=== PATIENT | female | born 1980 | race Caucasian/White ===

== ENCOUNTER 2016-09-17 12:09 | Emergency (ER) | payer MEDICARE, MEDICAID ==
[~2016-09-17] VITALS: Ht 157.5 cm; Wt 68.0 kg
[2016-09-17 12:09] VITALS: BP 109/84
[~2016-09-17 12:09] MED LIST: ASPI32ECTA PO; ATIV1TAB2 OR; ATIV1TAB7 PO; BUPR150T3 PO; CALC500C PO; CIPR-303 PO; DEPA500T2 OR; DEPA500T2 PO; EFFE75CA75 OR; HYDR-4274 PO; HYDRO50TAB PO; IBUP80TA PO; KLON1TAB PO; LIDO1OIN2 TOP; LITH300C PO; METH75TA PO; METR500T10 PO; MOTR200T44 PO; NICO21PAT TD; OXCA150T PO; OXCA300T PO; TRAZ150T14 PO; TYLE325C PO; TYLE325T5 PO; WELLTAB38 PO; [UNRECOGNIZED DRUG - OTHER] TD; no
[2016-09-17] MEDS ORDERED: OXCA300T (12:23)
[2016-09-17] MEDS ORDERED: BUPR100T3 (12:23)
[2016-09-17] MEDS ORDERED: BUPR100T3 PO (13:01)
[2016-09-18] MEDS ORDERED: ZOFR4TAB3 PO (13:15)
== END 2016-09-17 13:16 | disposition home or self-care (01) ==
LOC: M ED 13:11
DX: Z76.0 Encounter for issue of repeat prescription (principal); F33.0 Major depressive disorder, recurrent, mild; Z79.899 Other long term (current) drug therapy; F17.210 Nicotine dependence, cigarettes, uncomplicated

== ENCOUNTER 2016-09-18 10:26 | Emergency (ER) | payer MEDICARE, MEDICAID ==
[~2016-09-18] VITALS: Ht 157.5 cm; Wt 68.0 kg
[~2016-09-18 10:26] MED LIST changes: +BUPR100T3; +BUPR100T3 PO; +OXCA300T
[2016-09-18] MEDS ORDERED: ONDANSETRON 4MG/2ML VIAL (J2405) IV ONE (11:15)
[2016-09-18 11:27] LABS: CONTROL LINE HCG INT CTR LINE PRESENT
[2016-09-18 11:28] LABS: BASO % 0.2 % (0.0-1.0); EOS # 0.1 K/mm3 (0.0-0.50); EOS % 0.5 % (0.0-3.0); LARGE UNSTAINED CELL # 0.1 K/mm3 (0.0-0.4); LARGE UNSTAINED CELL % 0.5 % (0.0-4.0); LYMPH # 1.3 K/mm3 (1.5-4.5); LYMPH % 9.3 % (24.0-44.0); MEAN CORPUSCULAR HEMOGLOBIN 29.6 pg (27.0-33.0); MEAN CORPUSCULAR HGB CONC 33.3 g/dl (32.0-36.5); MONO # 0.3 K/mm3 (0.0-0.8); MONO % 2.3 % (0.0-5.0); NEUTROPHILS # 11.4 K/mm3 (1.8-7.7); NEUTROPHILS % 87.2 % (36.0-66.0); PLATELET COUNT, AUTOMATED 612 k/mm3 (150-450); RED CELL DISTRIBUTION WIDTH 13.8 % (11.5-14.5)
[2016-09-18 11:34] LABS: ALBUMIN 3.7 GM/DL (3.2-5.2); ALBUMIN/GLOBULIN RATIO 0.86 (1.00-1.93); ALKALINE PHOSPHATASE 79 U/L (45-117); ALT/SGPT 14 U/L (12-78); ANION GAP 7 MEQ/L (8-16); AST/SGOT 27 U/L (15-37); BILIRUBIN,DIRECT < 0.1 MG/DL (0.0-0.2); BILIRUBIN,TOTAL 0.4 MG/DL (0.2-1.0); BLOOD UREA NITROGEN 11 MG/DL (7-18); CALCIUM LEVEL 9.2 MG/DL (8.5-10.1); CARBON DIOXIDE LEVEL 27 MEQ/L (21-32); CHLORIDE LEVEL 103 MEQ/L (98-107); CREATININE FOR GFR 0.85 MG/DL (0.55-1.02); GLOMERULAR FILTRATION RATE > 60.0 (>60); GLUCOSE, FASTING 121 MG/DL (70-105); POTASSIUM SERUM 4.2 MEQ/L (3.5-5.1); SODIUM LEVEL 137 MEQ/L (136-145)
--- NOTE | 2016-09-18 13:05 | REP ---
Right upper quadrant sonography: History: However quadrant pain. Comparison study: No comparison study Findings: Scanning through the right upper quadrant of the abdomen demonstrates a normal sized, thin-walled gallbladder without evidence of stone or polyp. Common bile duct is normal measuring 0.5 cm in greatest diameter. No focal liver lesion is seen. Liver size is normal. No pancreatic abnormality is observed. Renal sinus echogenicity pattern is somewhat increased in the right kidney. This may reflect hydration state. No other right renal abnormality is seen. There is no evidence of ascites. The right kidney measures 9.7 x 5.2 x 4.3 cm. cm. Impression: Negative right upper quadrant sonography. Signed by Jayce Urbina MD 09/18/2016 12:56 P
[2016-09-18] MEDS ORDERED: ZOFR4TAB3 PO (13:15)
[2016-09-18 14:05] VITALS: BP 118/67
--- NOTE | 2016-09-19 19:41 | ECGEPIP ---
Stationary ECG Study [facility] - ED Test Date: 2016-09-18 Pat Name: SHERMAN BARRIOS Department: Room: - Gender: F [employer] Operator: milind : 1980 Requested By: Harrison Cook Order Number: [id number] Reading MD: Alissa Grant Measurements Intervals Fonda Rate: 63 P: 20 AL: QRS: -54 QRSD: 99 T: 28 QT: 418 QTc: 429 Interpretive Statements SINUS RHYTHM WITH SINUS ARRHYTHMIA PATTERN CONSISTENT WITH PULMONARY DISEASE LEFT ANTERIOR FASCICULAR BLOCK NONSPECIFIC ST ELEVATION REQUIRES CLIICAL CORRELATION FOR ACUTE ISCHEMIA COMPARED 10/29/15 Electronically Signed On 09-19-2016 19:41:06 EDT by Alissa Grant
== END 2016-09-18 14:09 | disposition home or self-care (01) ==
LOC: M ED 12:02
DX: R11.2 Nausea with vomiting, unspecified (principal)
CPT/HCPCS: 76705; 80048; 80076; 84703; 85025; 93005; 96374; 99284; J2405

== ENCOUNTER 2016-10-16 20:38 | Emergency (ER) | payer MEDICARE, MEDICAID ==
[~2016-10-16] VITALS: Ht 157.5 cm; Wt 68.9 kg
[~2016-10-16 20:38] MED LIST changes: +ZOFR4TAB3 PO
[2016-10-16 20:39] VITALS: BP 145/90
[2016-10-16] MEDS ORDERED: DERMABOND TOPICAL SKIN ADHESIVE TOP ONE (21:00)
[2016-10-16] MEDS ORDERED: AUGM875T27 PO (21:02)
== END 2016-10-16 21:11 | disposition home or self-care (01) ==
LOC: M ED 21:08
DX: S61.001A Unspecified open wound of right thumb without damage to nail, initial encounter (principal); W25.XXXA Contact with sharp glass, initial encounter; Y92.099 Unspecified place in other non-institutional residence as the place of occurrence of the external cause; Y93.9 Activity, unspecified; Y99.9 Unspecified external cause status; F17.200 Nicotine dependence, unspecified, uncomplicated

== ENCOUNTER 2017-04-24 05:05 | Emergency (ER) | payer MEDICARE, MEDICAID ==
[~2017-04-24] VITALS: Ht 160 cm; Wt 56.8 kg
[~2017-04-24 05:05] MED LIST changes: +ASPI325T24 PO; -ASPI32ECTA PO; +AUGM875T28 PO; -HYDR-4274 PO; +HYDR50TA70 PO; +METR1TAB66 PO; -METR500T10 PO; -TRAZ150T14 PO; +TRAZ1TAB14 PO
[2017-04-24 06:35] LABS: MEAN CORPUSCULAR HEMOGLOBIN 28.4 pg (27.0-33.0); MEAN CORPUSCULAR HGB CONC 32.5 g/dl (32.0-36.5); MEAN CORPUSCULAR VOLUME 87.4 fl (80.0-96.0); PLATELET COUNT, AUTOMATED 526 10^3/uL (150-450); WHITE BLOOD COUNT 10.8 10^3/uL (4.0-10.0)
[2017-04-24 06:55] LABS: CONTROL LINE HCG INT CTR LINE PRESENT
[2017-04-24 07:01] LABS: METHADONE URINE NEGATIVE (NEGATIVE)
[2017-04-24 07:12] LABS: ALBUMIN 3.4 GM/DL (3.2-5.2); ALBUMIN/GLOBULIN RATIO 0.94 (1.00-1.93); ALKALINE PHOSPHATASE 80 U/L (45-117); ALT/SGPT 10 U/L (12-78); ANION GAP 5 MEQ/L (8-16); AST/SGOT 7 U/L (15-37); BILIRUBIN,DIRECT 0.1 MG/DL (0.0-0.2); BILIRUBIN,TOTAL 0.4 MG/DL (0.2-1.0); BLOOD UREA NITROGEN 6 MG/DL (7-18); CALCIUM LEVEL 8.9 MG/DL (8.5-10.1); CARBON DIOXIDE LEVEL 28 MEQ/L (21-32); CHLORIDE LEVEL 105 MEQ/L (98-107); CREATININE FOR GFR 0.74 MG/DL (0.55-1.02); GLOMERULAR FILTRATION RATE > 60.0 (>60); GLUCOSE, FASTING 78 MG/DL (70-105); POTASSIUM SERUM 4.1 MEQ/L (3.5-5.1); SODIUM LEVEL 138 MEQ/L (136-145)
[2017-04-24] MEDS ORDERED: IBUPROFEN 600 MG TAB PO ONE (11:00)
[2017-04-24 18:56] VITALS: BP 156/102
--- NOTE | 2017-04-25 08:04 | ECGEPIP ---
Stationary ECG Study [facility] - ED Test Date: 2017-04-24 Pat Name: SHERMAN BARRIOS Department: Room: - Gender: F Clinical Research Coordinator: JSandi : 1980 Requested By: Harrison Cook Order Number: [id number] Reading MD: Alissa Grant Measurements Intervals Wendel Rate: 71 P: 67 MI: 159 QRS: 48 QRSD: 101 T: 18 QT: 398 QTc: 434 Interpretive Statements SINUS RHYTHM WITH SINUS ARRHYTHMIA NONSPECIFIC T-WAVE ABNORMALITY NSTTW ABNORMALITY Electronically Signed On 04-25-2017 8:04:06 EDT by Alissa Grant
== END 2017-04-24 19:01 ==
LOC: M ED 05:05
DX: R45.851 Suicidal ideations (principal); R94.31 Abnormal electrocardiogram [ECG] [EKG]; F32.9 Major depressive disorder, single episode, unspecified
CPT/HCPCS: 80048; 80076; 80307; 84443; 84703; 85027; 93005; 99285; G0480

== ENCOUNTER 2017-06-14 02:31 | Inpatient (IN) | payer MEDICARE, MEDICAID ==
[~2017-06-14] VITALS: Ht 157.5 cm; Wt 59.1 kg
[2017-06-14 03:55] LABS: MEAN CORPUSCULAR HEMOGLOBIN 28.1 pg (27.0-33.0); MEAN CORPUSCULAR HGB CONC 32.3 g/dl (32.0-36.5); MEAN CORPUSCULAR VOLUME 86.9 fl (80.0-96.0); PLATELET COUNT, AUTOMATED 571 10^3/uL (150-450); RED CELL DISTRIBUTION WIDTH 14.2 % (11.5-14.5); WHITE BLOOD COUNT 9.5 10^3/uL (4.0-10.0)
[2017-06-14 04:12] LABS: CONTROL LINE HCG INT CTR LINE PRESENT
[2017-06-14] MEDS ORDERED: SALINE NOSE DROPS 30 ML PRN (04:15)
[2017-06-14 04:28] LABS: ALBUMIN 3.8 GM/DL (3.2-5.2); ALBUMIN/GLOBULIN RATIO 0.95 (1.00-1.93); ALKALINE PHOSPHATASE 91 U/L (45-117); ALT/SGPT 10 U/L (12-78); ANION GAP 6 MEQ/L (8-16); AST/SGOT 8 U/L (7-37); BILIRUBIN,DIRECT < 0.1 MG/DL (0.0-0.2); BILIRUBIN,TOTAL 0.4 MG/DL (0.2-1.0); BLOOD UREA NITROGEN 4 MG/DL (7-18); CALCIUM LEVEL 9.2 MG/DL (8.5-10.1); CARBON DIOXIDE LEVEL 28 MEQ/L (21-32); CHLORIDE LEVEL 107 MEQ/L (98-107); CREATININE FOR GFR 0.84 MG/DL (0.55-1.02); GLOMERULAR FILTRATION RATE > 60.0 (>60); GLUCOSE, FASTING 85 MG/DL (70-105); POTASSIUM SERUM 4.9 MEQ/L (3.5-5.1); SODIUM LEVEL 141 MEQ/L (136-145); TOTAL PROTEIN 7.8 GM/DL (6.4-8.2)
[2017-06-14 05:00] LABS: METHADONE URINE NEGATIVE (NEGATIVE)
[2017-06-14] MEDS ORDERED: ALPRAZolam 0.25 MG TAB PO ONE (12:30)
[2017-06-14 13:25] VITALS: BP 129/95
[2017-06-14] MEDS ORDERED: MAALOX 30 ML SUSP *UDC PO PRN (16:15)
[2017-06-14] MEDS ORDERED: ACETAMINOPHEN TAB 650MG DOSE (2X325MG) PO PRN (16:15)
[2017-06-14] MEDS ORDERED: MOM 30ML SUSPENSION UDC PO PRN (16:15)
[2017-06-14 18:00] VITALS: BP 105/60
[2017-06-14] MEDS: OLANZapine ORAL DISINTEGRATING TAB 5MG PO PRN (18:17)
[2017-06-15 06:39] VITALS: BP 139/66
[2017-06-15] MEDS: OLANZapine ORAL DISINTEGRATING TAB 5MG PO PRN (12:04)
[2017-06-15] MEDS ORDERED: LORazepam 1 MG TAB PO STA (12:37)
[2017-06-15] MEDS ORDERED: QUEtiapine FUMARATE 50 MG TAB PO ONE (13:30)
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
[2017-06-15] MEDS: DIVALPROEX 500MG *ER* TAB PO SCH ×2 (17:30→21:09)
[2017-06-15 18:23] VITALS: BP 111/63
[2017-06-15] MEDS: QUEtiapine FUMARATE 50 MG TAB PO PRN (19:00)
[2017-06-15] MEDS: traZODone 50 MG TAB PO PRN (21:08)
--- NOTE | 2017-06-16 00:59 | HPE ---
DATE OF ADMISSION: 06/14/2017 HISTORY OF PRESENT ILLNESS: Please refer to psychiatric history and evaluation for further details on this admission. This examination and history is intended for medical issues, which may need treatment, followup or consult on this 37-year-old female. ALLERGIES: No known allergies per the record. SOCIAL HISTORY: She is single. Smokes one pack of cigarettes per day. She has a history of recreational drug use of crack cocaine and marijuana. PAST MEDICAL HISTORY: 1. Anxiety. 2. Bipolar. PAST SURGICAL HISTORY: 1. Tubal ligation. 2. Open reduction, internal fixation right foot. 3. section. LABORATORY STUDIES: WBC 9.5, hemoglobin 14.8, hematocrit 45.8, platelets were elevated at 575. Recheck has been ordered. Electrolytes were normal. BUN was 5, creatinine 0.84. Urine was positive for cocaine, positive for cannabinoids. HOME MEDICATIONS: None. Patient declined to participate in review of systems or physical exam. She was quite agitated. Per the record, height 62 inches, weight 59.1 kg, body mass index (BMI) 23.8. Blood pressure 122/62, pulse 80, respirations 16, temperature 98.2. IMPRESSION/PLAN: Psychiatric plan per psychiatry. Will recheck platelets if patient allows. Monitor for drug withdrawal.
[2017-06-16 06:44] VITALS: BP 109/59
[2017-06-16] MEDS: DIVALPROEX 500MG *ER* TAB PO SCH ×2 (08:55→12:18)
[2017-06-16] MEDS: OXcarbazepine 150 MG TAB PO SCH ×3 (13:32→20:00)
[2017-06-16] MEDS: buPROPion (WELLBUTRIN SR) 100 MG SR TAB PO SCH (13:32)
[2017-06-16] MEDS: QUEtiapine FUMARATE 50 MG TAB PO PRN (14:24)
--- NOTE | 2017-06-16 15:50 | MHIPN ---
DATE: 06/16/2017 VITAL SIGNS: Temperature 99.7, pulse 72, respirations 14, blood pressure 109/59. CURRENT MEDICATIONS: - Depakote 500 mg four times a day - Seroquel 50 mg every 6 hours as needed - trazodone 50 mg nightly as needed HISTORY OF PRESENT ILLNESS: The patient was quite agitated yesterday. She still has poor impulse control today on the unit, she shouts and yells, being highly critical of staff. The patient is quite paranoid. She denies hearing voices, however. She does report significant paranoia over the past year. She believes that cameras follow her activity wherever she goes, such as to her house, her boyfriend's house, or a local hotel. She feels that she is being videotaped and people know what her activity is. She feels that cars follow her as well in the community. The patient has been consuming a large amount of crack cocaine over the past 6-12 months, which is likely contributing to her paranoia. The patient does have a history of bipolar disorder. The patient had been prescribed Depakote at last admission. However, she dislikes Depakote. She prefers to go back on the Trileptal and Wellbutrin, which had been prescribed back in October 2015. She was also diagnosed with bipolar disorder mixed state at that time and was noted to be quite volatile on the unit. She did well on a combination of Trileptal 450 mg twice a day and Wellbutrin 150 mg every morning. She also likes the Seroquel as needed to help with her anxiety and agitation. MENTAL STATUS EXAMINATION: As mentioned above, she is episodically agitated, loud, and irritable in the corridors requiring staff structure. With me today, she is reasonably cooperative. She does report manic symptoms. She denies being depressed or currently suicidal. She does report racing thoughts. She denies hearing voices, but does have significant paranoia. No signs of thought disorder. Insight and judgment is quite poor. Grooming and hygiene is poor. The patient is a potential danger to herself and others. No signs of organicity. DIAGNOSES: Bipolar disorder mixed with psychotic features. Cocaine use disorder. Cannabis use disorder. Posttraumatic stress disorder (PTSD) by history. History of traumatic brain injury (TBI). PLAN: Discontinue Depakote. Patient switched to Trileptal 150 mg three times a day. Also start trial on Wellbutrin SR 150 mg every morning. Use of Seroquel as needed.
[2017-06-16 18:00] VITALS: BP 110/62
[2017-06-16] MEDS: OLANZapine ORAL DISINTEGRATING TAB 5MG PO PRN (18:39)
[2017-06-16] MEDS: QUEtiapine FUMARATE 100 MG TAB PO SCH (20:00)
[2017-06-17 07:00] VITALS: BP 120/59
[2017-06-17] MEDS: OXcarbazepine 150 MG TAB PO SCH ×4 (09:11→20:40)
[2017-06-17] MEDS: buPROPion (WELLBUTRIN SR) 100 MG SR TAB PO SCH (09:11)
--- NOTE | 2017-06-17 15:48 | MHIPN ---
DATE: 06/17/2017 VITAL SIGNS: Temperature 97.9, pulse 69, respirations 18, blood pressure 120/59. CURRENT MEDICATIONS: - Trileptal 150 mg four times a day - Seroquel 100 mg nightly - Wellbutrin SR 100 mg every morning - Seroquel 50 mg every 6 hours as needed - trazodone 50 mg nightly as needed HISTORY OF PRESENT ILLNESS: The patient admits that her recent behavior on the unit was "like a monster." She admits that this is always her presenting behavior every time she is hospitalized. She admits that she can get quite angry and irritable. She states that now she feels calmer. She has gotten some good sleep and is more rested. She was not sleeping well for months prior to admission. Her mood is improved and more "upbeat." She feels more stable emotionally. The depression is less prominent. She denies current suicidal thoughts. The patient is still reporting some paranoid ideation. For example, that she is convinced that she has been recorded by secret video cameras in the past. She likes the psychotropics. She has no side effects on them. MENTAL STATUS EXAMINATION: The patient is in better behavioral control. She is not agitated today. Affect is much improved. Eye contact is good. She smiles readily. She still appears somewhat accelerated and hypomanic, but shows better insight and better judgment. She denies hearing voices, but is still reporting some paranoid ideation. No signs of thought disorder. Insight and judgment appear improved. Grooming and hygiene appear good. DIAGNOSES: Bipolar disorder, mixed, with psychotic features. Posttraumatic stress disorder (PTSD). History of traumatic brain injury (TBI). Cocaine use disorder. Cannabis use disorder. PLAN: Continue current psychotropics. Patient interested in inpatient chemical dependency program such as [facility].
[2017-06-17 18:00] VITALS: BP 119/76
[2017-06-17] MEDS: OLANZapine ORAL DISINTEGRATING TAB 5MG PO PRN (19:22)
[2017-06-17] MEDS: QUEtiapine FUMARATE 100 MG TAB PO SCH (20:40)
[2017-06-18 06:54] VITALS: BP 124/61
[2017-06-18] MEDS: OXcarbazepine 150 MG TAB PO SCH ×3 (09:54→20:06)
[2017-06-18] MEDS: buPROPion (WELLBUTRIN SR) 100 MG SR TAB PO SCH (09:54)
[2017-06-18] MEDS: OLANZapine ORAL DISINTEGRATING TAB 5MG PO PRN (11:24)
[2017-06-18] MEDS: QUEtiapine FUMARATE 50 MG TAB PO PRN (14:02)
[2017-06-18 18:00] VITALS: BP 132/80
--- NOTE | 2017-06-18 18:32 | MHIPN ---
DATE: 06/18/2017 VITAL SIGNS: Temperature 98.8, pulse 65, respirations 14, blood pressure 124/61. CURRENT MEDICATIONS: - Wellbutrin SR 100 mg in the morning - Seroquel 100 mg nightly - Trileptal 150 mg four times a day - trazodone 50 mg nightly as needed PSYCHIATRIC HISTORY: The patient requests special visitations rights with her 3-year-old son. After this is investigated, the staff says this is against hospital rules. When seen afterwards, the patient becomes quite agitated, acting in a bullying, hostile, narcissistic fashion. She is yelling, screaming and requiring nursing staff intervention before she settles down. Prior to her outburst, the patient reports that the medication has been helpful. She is willing to increase the dosage. She states that she is interested in attending [facility]. The patient is taking some distance from her delusional, paranoid beliefs about the video cameras. MENTAL STATUS EXAMINATION: Initially, the patient is in behavioral control but when her request for special visitation rights with her son is refused, she becomes quite irritable and agitated. She denies hearing voices. The patient is still reporting some paranoid ideation. Insight and judgment appear poor. Grooming and hygiene appear fair. The patient reports mild depressive symptoms. Affect is still labile, as mentioned above. DIAGNOSES: Bipolar disorder, mixed, with psychotic features. Posttraumatic stress disorder (PTSD). History of traumatic brain injury (TBI). Cocaine use disorder. Cannabis use disorder. PLAN: Increase Wellbutrin SR to 150 mg in the morning. Increase Trileptal to 300 mg three times a day. Increase Seroquel to 150 mg at night. Staff to assist the patient with chemical dependency referral.
[2017-06-18] MEDS: QUEtiapine FUMARATE 50 MG TAB PO SCH (20:06)
[2017-06-18] MEDS: traZODone 50 MG TAB PO PRN (22:54)
[2017-06-19 06:45] VITALS: BP 120/66
[2017-06-19] MEDS: OLANZapine ORAL DISINTEGRATING TAB 5MG PO PRN ×2 (09:24→13:37)
[2017-06-19] MEDS: buPROPion **SR TABLET** (ZYBAN) 150MG PO SCH (09:24)
[2017-06-19] MEDS: OXcarbazepine 150 MG TAB PO SCH ×3 (09:24→20:17)
[2017-06-19] MEDS ORDERED: HALOPERIDOL 5 MG TAB PO STA (14:45)
[2017-06-19] MEDS ORDERED: LORazepam 2 MG TAB PO STA (14:45)
[2017-06-19] MEDS ORDERED: diphenhydrAMINE 50 MG CAP PO STA (14:45)
[2017-06-19 18:38] VITALS: BP 122/78
[2017-06-19] MEDS: QUEtiapine FUMARATE 50 MG TAB PO SCH (20:17)
[2017-06-19] MEDS: traZODone 50 MG TAB PO PRN (20:17)
[2017-06-20 06:39] VITALS: BP 103/56
[2017-06-20] MEDS: OXcarbazepine 150 MG TAB PO SCH ×3 (09:47→21:31)
[2017-06-20] MEDS: buPROPion **SR TABLET** (ZYBAN) 150MG PO SCH (09:47)
[2017-06-20 18:11] VITALS: BP 129/70
[2017-06-20] MEDS: traZODone 50 MG TAB PO PRN (21:31)
[2017-06-20] MEDS: QUEtiapine FUMARATE 50 MG TAB PO SCH (21:31)
[2017-06-20] MEDS: QUEtiapine FUMARATE 50 MG TAB PO PRN (23:47)
[2017-06-21 06:40] VITALS: BP 167/77
[2017-06-21] MEDS: OXcarbazepine 150 MG TAB PO SCH ×2 (08:55→15:41)
[2017-06-21] MEDS: buPROPion **SR TABLET** (ZYBAN) 150MG PO SCH (08:55)
[2017-06-21] MEDS ORDERED: diphenhydrAMINE 50 MG CAP PO PRN (14:00)
[2017-06-21] MEDS ORDERED: BUPR15TASR PO (14:08)
[2017-06-21] MEDS ORDERED: DIPH50CA PO (14:08)
[2017-06-21] MEDS ORDERED: HALO1TAB29 PO (14:08)
[2017-06-21] MEDS ORDERED: OXCA300T PO (14:08)
[2017-06-21] MEDS ORDERED: HALOPERIDOL 10 MG TAB PO SCH (21:00)
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
== END 2017-06-21 16:15 | disposition home or self-care (01) | DRG 885 ==
LOC: M ED 02:31 → M ED INP 12:25 → M PSY 13:23
PROVIDERS: ADMIT Psychiatry & Neurology Psychiatry; ATTEND Psychiatry & Neurology Psychiatry
DX: F31.60 Bipolar disorder, current episode mixed, unspecified (principal); F12.90 Cannabis use, unspecified, uncomplicated; F14.90 Cocaine use, unspecified, uncomplicated; F43.10 Post-traumatic stress disorder, unspecified; Z79.899 Other long term (current) drug therapy; F17.210 Nicotine dependence, cigarettes, uncomplicated

== ENCOUNTER 2017-10-10 19:38 | Inpatient (IN) | payer MEDICARE, MEDICAID ==
[2017-10-10 20:59] LABS: HEMATOCRIT 41.5 % (36.0-47.0); HEMOGLOBIN 13.5 g/dl (12.0-15.5); MEAN CORPUSCULAR HEMOGLOBIN 28.4 pg (27.0-33.0); MEAN CORPUSCULAR HGB CONC 32.5 g/dl (32.0-36.5); MEAN CORPUSCULAR VOLUME 87.2 fl (80.0-96.0); PLATELET COUNT, AUTOMATED 571 10^3/uL (150-450); RED BLOOD COUNT 4.76 10^6/uL (4.00-5.40); RED CELL DISTRIBUTION WIDTH 14.8 % (11.5-14.5); WHITE BLOOD COUNT 12.1 10^3/uL (4.0-10.0)
[2017-10-10 21:16] LABS: CONTROL LINE HCG INT CTR LINE PRESENT; HCG, SERUM QUALITATIVE NEGATIVE (NEGATIVE)
[2017-10-10 21:22] LABS: AMPHETAMINES LEVEL URINE NEGATIVE (NEGATIVE); BARBITURATES URINE NEGATIVE (NEGATIVE); BENZODIAZEPINES URINE NEGATIVE (NEGATIVE); CANNABINOIDS URINE POSITIVE (NEGATIVE); COCAINE METABOLITE URINE POSITIVE (NEGATIVE); METHADONE URINE NEGATIVE (NEGATIVE); OPIATES URINE NEGATIVE (NEGATIVE); PHENCYCLIDINE URINE NEGATIVE (NEGATIVE)
[2017-10-10 21:31] LABS: ACETAMINOPHEN LEVEL < 2.0 UG/ML (10.0-30.0); ALBUMIN 3.8 GM/DL (3.2-5.2); ALBUMIN/GLOBULIN RATIO 0.95 (1.00-1.93); ALKALINE PHOSPHATASE 81 U/L (45-117); ALT/SGPT 13 U/L (12-78); ANION GAP 5 MEQ/L (8-16); AST/SGOT 6 U/L (7-37); BILIRUBIN,DIRECT < 0.1 MG/DL (0.0-0.2); BILIRUBIN,TOTAL 0.5 MG/DL (0.2-1.0); BLOOD UREA NITROGEN 9 MG/DL (7-18); CALCIUM LEVEL 8.8 MG/DL (8.5-10.1); CARBON DIOXIDE LEVEL 27 MEQ/L (21-32); CHLORIDE LEVEL 105 MEQ/L (98-107); CREATININE FOR GFR 0.83 MG/DL (0.55-1.30); GLOMERULAR FILTRATION RATE > 60.0 (>60); GLUCOSE, FASTING 87 MG/DL (70-100); POTASSIUM SERUM 4.1 MEQ/L (3.5-5.1); SALICYLATE LEVEL 6.7 MG/DL (5.0-30.0); SODIUM LEVEL 137 MEQ/L (136-145); THYROID STIMULATING HORMONE 0.455 uIU/ML (0.358-3.740); TOTAL PROTEIN 7.8 GM/DL (6.4-8.2)
[2017-10-10 21:41] LABS: ETHYL ALCOHOL (ETHANOL) < 0.003 % (0.000-0.010)
[2017-10-10] MEDS ORDERED: MAALOX 30 ML SUSP *UDC PO (22:15)
[2017-10-10] MEDS ORDERED: traZODone 50 MG TAB PO (22:15)
[2017-10-10] MEDS ORDERED: MOM 30ML SUSPENSION UDC PO (22:15)
[2017-10-11] MEDS: CEPHALEXIN 500 MG CAP PO ×3 (06:00→21:12)
[2017-10-11] MEDS: NALTREXONE 50 MG TAB PO ×2 (09:00→17:11)
[2017-10-11] MEDS: VENLAFAXINE **XR** 37.5 MG CAPSULE PO (09:00)
[2017-10-11] MEDS: hydrOXYzine 50 MG TAB PO ×2 (10:19→21:13)
[2017-10-11 11:13] LABS: KETONE, URINE AUTO RFX NEGATIVE (NEGATIVE); LEUKOCYTE ESTERASE UR AUTO RFX NEGATIVE (NEGATIVE); NITRITE, URINE AUTO RFX NEGATIVE (NEGATIVE); RBC, URINE AUTO RFX 0 /HPF (0-3); SPECIFIC GRAVITY UR AUTO RFX 1.003 (1.002-1.035); SQUAM EPITHELIAL CELL UR AURFX 7 /HPF (0-6); WBC, URINE AUTO RFX 2 /HPF (0-3)
[2017-10-11 11:29] LABS: HEMATOCRIT 41.1 % (36.0-47.0); HEMOGLOBIN 13.6 g/dl (12.0-15.5); MEAN CORPUSCULAR HEMOGLOBIN 28.6 pg (27.0-33.0); MEAN CORPUSCULAR HGB CONC 33.1 g/dl (32.0-36.5); MEAN CORPUSCULAR VOLUME 86.5 fl (80.0-96.0); PLATELET COUNT, AUTOMATED 579 10^3/uL (150-450); RED BLOOD COUNT 4.75 10^6/uL (4.00-5.40); WHITE BLOOD COUNT 8.3 10^3/uL (4.0-10.0)
[2017-10-11] MEDS ORDERED: hydrOXYzine 50 MG TAB PO (12:00)
[2017-10-11 12:32] LABS: ALBUMIN 3.7 GM/DL (3.2-5.2); ALBUMIN/GLOBULIN RATIO 1.03 (1.00-1.93); ALKALINE PHOSPHATASE 78 U/L (45-117); ALT/SGPT 12 U/L (12-78); ANION GAP 6 MEQ/L (8-16); AST/SGOT 10 U/L (7-37); BILIRUBIN,TOTAL 0.6 MG/DL (0.2-1.0); BLOOD UREA NITROGEN 8 MG/DL (7-18); CARBON DIOXIDE LEVEL 26 MEQ/L (21-32); CHLORIDE LEVEL 107 MEQ/L (98-107); GLOMERULAR FILTRATION RATE > 60.0 (>60); GLUCOSE, FASTING 87 MG/DL (70-100); POTASSIUM SERUM 4.3 MEQ/L (3.5-5.1); SODIUM LEVEL 139 MEQ/L (136-145); TOTAL PROTEIN 7.3 GM/DL (6.4-8.2)
[2017-10-11 12:36] LABS: HEPATITIS B SURFACE ANTIGEN NEGATIVE (NEGATIVE)
[2017-10-11 12:38] LABS: CHLAMYDIA DNA AMPLIFICATION NEGATIVE (NEGATIVE); GC DNA AMPLIFICATION NEGATIVE (NEGATIVE)
[2017-10-11 13:03] LABS: HEPATITIS B CORE ANTIBODY IGM NEGATIVE (NEGATIVE); HEPATITIS C VIRUS ABY INDEX 0.1 INDEX (<0.8)
[2017-10-11 13:05] LABS: HIV 1&2 SCREEN CENTAUR NEGATIVE (NEGATIVE)
[2017-10-11 13:06] LABS: HEPATITIS A ANTIBODY IGM NEGATIVE (NEGATIVE)
[2017-10-12] MEDS: CEPHALEXIN 500 MG CAP PO ×3 (06:19→21:21)
[2017-10-12] MEDS: NALTREXONE 50 MG TAB PO (08:53)
[2017-10-12] MEDS: NYSTATIN 100,000 UNITS/GM TOPICAL PWD 15 GM TOP (08:53)
[2017-10-12] MEDS: hydrOXYzine 50 MG TAB PO (08:53)
[2017-10-12] MEDS: VENLAFAXINE **XR** 37.5 MG CAPSULE PO (08:55)
[2017-10-12] MEDS: LITHIUM CARBONATE 300 MG CAP PO ×2 (11:13→21:21)
[2017-10-12 12:04] LABS: ALBUMIN 3.4 GM/DL (3.2-5.2); ALBUMIN/GLOBULIN RATIO 0.94 (1.00-1.93); ALKALINE PHOSPHATASE 73 U/L (45-117); ALT/SGPT 10 U/L (12-78); ANION GAP 6 MEQ/L (8-16); AST/SGOT 11 U/L (7-37); BILIRUBIN,TOTAL 0.3 MG/DL (0.2-1.0); BLOOD UREA NITROGEN 10 MG/DL (7-18); CARBON DIOXIDE LEVEL 26 MEQ/L (21-32); CHLORIDE LEVEL 109 MEQ/L (98-107); CREATININE FOR GFR 0.72 MG/DL (0.55-1.30); GLOMERULAR FILTRATION RATE > 60.0 (>60); GLUCOSE, FASTING 84 MG/DL (70-100); POTASSIUM SERUM 4.6 MEQ/L (3.5-5.1); SODIUM LEVEL 141 MEQ/L (136-145)
[2017-10-12 12:31] LABS: HEMATOCRIT 40.6 % (36.0-47.0); HEMOGLOBIN 13.1 g/dl (12.0-15.5); MEAN CORPUSCULAR HEMOGLOBIN 28.2 pg (27.0-33.0); MEAN CORPUSCULAR HGB CONC 32.3 g/dl (32.0-36.5); MEAN CORPUSCULAR VOLUME 87.5 fl (80.0-96.0); PLATELET COUNT, AUTOMATED 554 10^3/uL (150-450); RED BLOOD COUNT 4.64 10^6/uL (4.00-5.40); RED CELL DISTRIBUTION WIDTH 15.2 % (11.5-14.5); WHITE BLOOD COUNT 10.7 10^3/uL (4.0-10.0)
[2017-10-12] MEDS: ACETAMINOPHEN TAB 650MG DOSE (2X325MG) PO (17:35)
[2017-10-13] MEDS: CEPHALEXIN 500 MG CAP PO ×3 (05:43→21:14)
[2017-10-13] MEDS: NALTREXONE 50 MG TAB PO (08:17)
[2017-10-13] MEDS: LITHIUM CARBONATE 300 MG CAP PO ×2 (08:17→17:20)
[2017-10-13] MEDS: hydrOXYzine 50 MG TAB PO ×3 (08:43→21:14)
[2017-10-13 13:11] LABS: FOLLICLE STIMULATING HORMONE 5.4 mIU/mL; LUTEINIZING HORMONE 7.4 mIU/mL
[2017-10-13 13:11] LABS: PROGESTERONE 0.3 NG/ML
[2017-10-13] MEDS: DOXEPIN 25 MG CAP PO (21:14)
[2017-10-14] MEDS: LITHIUM CARBONATE 300 MG CAP PO (06:25)
[2017-10-14] MEDS: CEPHALEXIN 500 MG CAP PO ×3 (06:26→21:35)
[2017-10-14] MEDS: hydrOXYzine 50 MG TAB PO ×3 (06:26→21:35)
[2017-10-14] MEDS: NALTREXONE 50 MG TAB PO (06:26)
[2017-10-14] MEDS: ACETAMINOPHEN TAB 650MG DOSE (2X325MG) PO (10:03)
[2017-10-14] MEDS: busPIRone 5 MG TAB PO ×3 (11:33→21:35)
[2017-10-14] MEDS: IBUPROFEN 400 MG TAB PO (16:59)
[2017-10-14] MEDS: NICOTINE 21MG/24HR 1 EA TRANSDERMAL TD (21:00)
[2017-10-14] MEDS: NYSTATIN 100,000 UNITS/GM TOPICAL PWD 15 GM TOP (21:35)
[2017-10-15] MEDS: NALTREXONE 50 MG TAB PO (05:53)
[2017-10-15] MEDS: hydrOXYzine 50 MG TAB PO ×3 (05:53→21:30)
[2017-10-15] MEDS: CEPHALEXIN 500 MG CAP PO ×3 (05:53→21:30)
[2017-10-15] MEDS: busPIRone 5 MG TAB PO ×3 (09:33→21:30)
[2017-10-15] MEDS: NICOTINE 21MG/24HR 1 EA TRANSDERMAL TD (09:35)
[2017-10-15] MEDS: NYSTATIN 100,000 UNITS/GM TOPICAL PWD 15 GM TOP (12:51)
[2017-10-15] MEDS: ARIPiprazole 10 MG TAB PO (21:30)
[2017-10-15] MEDS: DOXEPIN 25 MG CAP PO (21:43)
[2017-10-16] MEDS: CEPHALEXIN 500 MG CAP PO ×3 (06:20→21:40)
[2017-10-16] MEDS: NALTREXONE 50 MG TAB PO (06:20)
[2017-10-16] MEDS: hydrOXYzine 50 MG TAB PO ×3 (06:20→20:00)
[2017-10-16] MEDS: busPIRone 5 MG TAB PO ×3 (06:21→21:40)
[2017-10-16] MEDS: NICOTINE 21MG/24HR 1 EA TRANSDERMAL TD (06:26)
[2017-10-16] MEDS: IBUPROFEN 400 MG TAB PO (13:02)
[2017-10-16] MEDS: ARIPiprazole 10 MG TAB PO (21:40)
[2017-10-16] MEDS: DOXEPIN 25 MG CAP PO (21:40)
[2017-10-17] MEDS: NALTREXONE 50 MG TAB PO (05:59)
[2017-10-17] MEDS: NICOTINE 21MG/24HR 1 EA TRANSDERMAL TD (05:59)
[2017-10-17] MEDS: CEPHALEXIN 500 MG CAP PO ×3 (06:00→21:24)
[2017-10-17] MEDS: hydrOXYzine 50 MG TAB PO ×3 (06:00→21:22)
[2017-10-17] MEDS: busPIRone 5 MG TAB PO ×3 (06:01→21:22)
[2017-10-17 14:56] LABS: ESTRADIOL SENSITIVE LC/MS 56.9 pg/mL (.)
[2017-10-17 14:56] LABS: ESTRADIOL 72.6 pg/mL (.); ESTRONE SERUM 77 pg/mL (.)
[2017-10-17] MEDS: ARIPiprazole 10 MG TAB PO (21:22)
[2017-10-17] MEDS: DOXEPIN 25 MG CAP PO (21:22)
[2017-10-17] MEDS: NYSTATIN 100,000 UNITS/GM TOPICAL PWD 15 GM TOP (22:21)
[2017-10-18] MEDS: CEPHALEXIN 500 MG CAP PO ×3 (06:24→20:57)
[2017-10-18] MEDS: NALTREXONE 50 MG TAB PO (06:24)
[2017-10-18] MEDS: hydrOXYzine 50 MG TAB PO ×4 (06:24→21:24)
[2017-10-18] MEDS: busPIRone 5 MG TAB PO (09:25)
[2017-10-18] MEDS: NICOTINE 21MG/24HR 1 EA TRANSDERMAL TD (09:25)
[2017-10-18] MEDS: FLUCONAZOLE 50MG TABLET PO (13:16)
[2017-10-18] MEDS: busPIRone 10 MG TAB PO ×2 (16:08→20:57)
[2017-10-18] MEDS: DOXEPIN 25 MG CAP PO (20:57)
[2017-10-18] MEDS: ARIPiprazole 10 MG TAB PO (20:57)
[2017-10-19] MEDS: hydrOXYzine 50 MG TAB PO ×3 (06:23→21:54)
[2017-10-19] MEDS: NALTREXONE 50 MG TAB PO (06:23)
[2017-10-19] MEDS: CEPHALEXIN 500 MG CAP PO ×3 (06:23→21:55)
[2017-10-19] MEDS: busPIRone 10 MG TAB PO ×3 (08:55→21:54)
[2017-10-19] MEDS: NICOTINE 21MG/24HR 1 EA TRANSDERMAL TD (08:55)
[2017-10-19] MEDS: ARIPiprazole 10 MG TAB PO (21:55)
[2017-10-19] MEDS: DOXEPIN 25 MG CAP PO (21:56)
[2017-10-20] MEDS: CEPHALEXIN 500 MG CAP PO ×2 (06:25→13:25)
[2017-10-20] MEDS: NALTREXONE 50 MG TAB PO (06:25)
[2017-10-20] MEDS: hydrOXYzine 50 MG TAB PO ×2 (06:25→13:25)
[2017-10-20] MEDS: busPIRone 10 MG TAB PO (08:38)
[2017-10-20] MEDS: NICOTINE 21MG/24HR 1 EA TRANSDERMAL TD (08:39)
[2017-10-20] MEDS: ARIPiprazole MONOHYDRATE 400 MG INJ (ABILIFY)(J0401) IM (11:42)
== END 2017-10-20 14:25 | disposition home or self-care (01) | DRG 885 ==
LOC: M ED 19:38 → M ED INP 22:13 → M PSY 22:50
DX: F33.2 Major depressive disorder, recurrent severe without psychotic features (principal); R45.851 Suicidal ideations; F60.3 Borderline personality disorder; F12.10 Cannabis abuse, uncomplicated; F14.10 Cocaine abuse, uncomplicated; M54.2 Cervicalgia; B35.9 Dermatophytosis, unspecified; M54.5 Low back pain; F17.200 Nicotine dependence, unspecified, uncomplicated; Z91.14 Patient's other noncompliance with medication regimen; Z98.51 Tubal ligation status; Z79.899 Other long term (current) drug therapy

== ENCOUNTER 2017-10-26 11:29 | Emergency (ER) | payer MEDICARE, MEDICAID | END 2017-10-26 12:50 | disposition home or self-care (01) | LOC: M ED 11:29 | DX: Z53.21 Procedure and treatment not carried out due to patient leaving prior to being seen by health care provider (principal) ==

== ENCOUNTER → 2018-03-15 | Outpatient (REF) | payer MEDICARE, MEDICAID | LOC: M SFHCPLAZ 17:43 | DX: R30.0 Dysuria (principal) | CPT/HCPCS: 87086 ==

== ENCOUNTER → 2018-04-20 | Outpatient (REF) | payer MEDICARE, MEDICAID ==
[2018-04-20 13:17] LABS: ESTIMATED AVERAGE GLUCOSE 111 MG/DL (60-110); HEMOGLOBIN A1c 5.5 %
== END ==
LOC: M LABDRAW1 09:44
DX: F31.60 Bipolar disorder, current episode mixed, unspecified (principal)
CPT/HCPCS: 83036

== ENCOUNTER → 2018-05-17 | Outpatient (REF) | payer MEDICARE, MEDICAID ==
[2018-05-17 15:47] LABS: CONTROL LINE UCG INT CTR LINE PRESENT; URINE PREG TEST NEGATIVE (NEGATIVE)
[2018-05-17 17:30] LABS: CHLAMYDIA DNA AMPLIFICATION NEGATIVE (NEGATIVE); GC DNA AMPLIFICATION NEGATIVE (NEGATIVE)
== END ==
LOC: M LABDRAW1 15:35
DX: N94.10 Unspecified dyspareunia (principal)
CPT/HCPCS: 84703

== ENCOUNTER → 2018-05-18 | Outpatient (REF) | payer MEDICARE, MEDICAID | LOC: M SFHCPLAZ 15:39 | DX: Z12.4 Encounter for screening for malignant neoplasm of cervix (principal); N94.10 Unspecified dyspareunia | CPT/HCPCS: G0123 ==

== ENCOUNTER → 2018-06-06 | Outpatient (CLI) | payer MEDICARE, MEDICAID | LOC: M WHC 09:32 | DX: N85.4 Malposition of uterus (principal); D25.9 Leiomyoma of uterus, unspecified; N88.8 Other specified noninflammatory disorders of cervix uteri; N94.10 Unspecified dyspareunia | CPT/HCPCS: 76830 ==

== ENCOUNTER 2023-05-10 18:38 | Emergency (ER) | payer MEDICARE, MEDICAID ==
[~2023-05-10] VITALS: Ht 160 cm; Wt 86.4 kg
[~2023-05-10 18:38] MED LIST changes: +ABIL300I IM; +ARIP1TAB PO; +ARIP1TAB6 PO; +ASPI-255 PO; -ASPI325T24 PO; +BUPR-70; +BUPR-70 PO; -BUPR100T3; -BUPR100T3 PO; +BUPR150T12 PO; -BUPR150T3 PO; +BUPR15TASR PO; +BUSP10TA PO; -CALC500C PO; +CEPH500C PO; +DIPH50CA PO; +DOXE25CA PO; +EXCETAB81 PO; +HALO10TA20 PO; +HYDR1TAB33 PO; -HYDRO50TAB PO; +METH-1165 PO; -METH75TA PO; +METR-265 PO; -METR1TAB66 PO; +NALT50TA4 PO; +NICO21DI9 TD; -OXCA150T PO; +OXCA150T21 PO; -OXCA300T; -OXCA300T PO; +OXCA300T14; +OXCA300T14 PO; +RA A500C4 PO; +ZOFR4TAB14 PO; -ZOFR4TAB3 PO; -[UNRECOGNIZED DRUG - OTHER] TD
[2023-05-10 20:28] LABS: AMPHETAMINES LEVEL URINE NEGATIVE (NEGATIVE); BARBITURATES URINE NEGATIVE (NEGATIVE)
[2023-05-10 20:29] LABS: BENZODIAZEPINES URINE NEGATIVE (NEGATIVE); METHADONE URINE NEGATIVE (NEGATIVE); OPIATES URINE NEGATIVE (NEGATIVE); PHENCYCLIDINE URINE NEGATIVE (NEGATIVE)
[2023-05-10 20:30] LABS: CANNABINOIDS URINE POSITIVE (NEGATIVE); COCAINE METABOLITE URINE POSITIVE (NEGATIVE)
[2023-05-10 20:43] LABS: ETHYL ALCOHOL (ETHANOL) < 0.003 % (0.000-0.010)
[2023-05-10 20:45] LABS: SALICYLATE LEVEL < 3.0 MG/DL (<30)
[2023-05-10 20:47] LABS: THYROID STIMULATING HORMONE 1.096 uIU/ML (0.55-4.78)
[2023-05-10 20:51] LABS: ALBUMIN 3.1 G/DL (3.2-5.2); ALKALINE PHOSPHATASE 60 U/L (46-116); ALT/SGPT 17 U/L (7.0-40); AST/SGOT 36 U/L (<34); BILIRUBIN,DIRECT < 0.1 MG/DL (<0.4); BILIRUBIN,TOTAL 0.3 MG/DL (0.3-1.2); BLOOD UREA NITROGEN 7 MG/DL (9-23); CALCIUM LEVEL 9.2 MG/DL (8.5-10.1); CARBON DIOXIDE LEVEL 26 MMOL/L (20-31); CHLORIDE LEVEL 104 MMOL/L (98-107); GLOMERULAR FILTRATION RATE > 60.0 (>58); GLUCOSE, FASTING 112 MG/DL (60-100); POTASSIUM SERUM 5.4 MMOL/L (3.5-5.1); SODIUM LEVEL 138 MMOL/L (136-145); TOTAL PROTEIN 6.8 G/DL (5.7-8.2)
[2023-05-10 20:52] LABS: D-DIMER QUANT 0.46 ug/mL (<0.5)
[2023-05-10 20:54] LABS: HCG, SERUM QUALITATIVE NEGATIVE (NEGATIVE)
[2023-05-10 21:01] LABS: HEMATOCRIT 40.2 % (36.0-47.0); HEMOGLOBIN 13.3 g/dl (12.0-15.5); MEAN CORPUSCULAR HGB CONC 33.1 g/dl (32.0-36.5); MEAN CORPUSCULAR VOLUME 90.5 fl (80.0-96.0); PLATELET COUNT, AUTOMATED 511 10^3/uL (150-450); RED BLOOD COUNT 4.44 10^6/uL (4.00-5.40); WHITE BLOOD COUNT 9.6 10^3/uL (4.0-10.0)
[2023-05-10 22:04] LABS: CK-MB VALUE MASS 8.4 NG/ML (<3.6); POTASSIUM SERUM 4.2 MMOL/L (3.5-5.1)
[2023-05-10] MEDS ORDERED: ISOVUE-370 76% 100ML VIAL As Ordered ONE (22:13)
[2023-05-10] MEDS ORDERED: NITROGLYCERIN 0.4MG SUBL TABLET SL PRN (22:15)
[2023-05-10] MEDS ORDERED: ASPIRIN 81MG CHEW TABLET PO ONE (22:15)
[2023-05-10 22:18] VITALS: BP 131/78
[2023-05-10 22:21] LABS: INR 0.95; PARTIAL THROMBOPLASTIN TIME 28.5 SECONDS (24.8-34.2); PROTHROMBIN TIME 12.5 SECONDS (12.5-14.5)
[2023-05-10] MEDS ORDERED: ACETAMINOPHEN TAB 650MG DOSE (2X325MG) PO ONE (22:25)
[2023-05-10 22:57] LABS: CK-MB VALUE MASS 9.8 NG/ML (<3.6)
[2023-05-10 23:00] LABS: MB/CK RELATIVE INDEX 6.95 (< OR =4)
[2023-05-10] MEDS ORDERED: HEPARIN DRIP 25,000 UNITS in IV 1 EA IV SCH (23:05)
[2023-05-10] MEDS ORDERED: CLOPIDOGREL 300 MG TAB (PLAVIX) PO ONE (23:05)
[2023-05-10] MEDS ORDERED: HEPARIN SOD (PORCINE) 5000UNITS/ML 1ML VIAL/SYRINGE IV ONE (23:05)
[2023-05-11 00:17] VITALS: BP 133/59; TEMP 97.6; O2SAT 96
== END 2023-05-11 00:19 | disposition short-term general hospital (02) ==
LOC: M ED 18:38
DX: R45.851 Suicidal ideations (principal); F14.10 Cocaine abuse, uncomplicated; I21.4 Non-ST elevation (NSTEMI) myocardial infarction; F12.10 Cannabis abuse, uncomplicated; F31.9 Bipolar disorder, unspecified; Z79.899 Other long term (current) drug therapy
CPT/HCPCS: 71046; 71275; 80048; 80076; 80143; 80307; 82077; 82550; 82553; 84132; 84443; 84484; 84703; 85027; 85379; 85610; 85730; 87635; 93005; 93041; 94760; 96374; 99285; Q9967

== ENCOUNTER 2023-08-31 21:03 | Emergency (ER) | payer MEDICARE, MEDICAID ==
[~2023-08-31] VITALS: Ht 157.5 cm; Wt 79.2 kg
[2023-08-31 21:24] VITALS: BP 128/94; TEMP 97.6; O2SAT 100
[2023-08-31 21:38] LABS: BASO # 0.1 10^3/uL (0.0-0.2); BASO % 0.9 % (0.0-1.0); EOS # 0.1 10^3/uL (0.0-0.5); EOS % 0.8 % (0.0-3.0); HEMATOCRIT 44.3 % (36.0-47.0); HEMOGLOBIN 14.4 g/dl (12.0-15.5); LYMPH % 25.4 % (24.0-44.0); MEAN CORPUSCULAR HEMOGLOBIN 29.4 pg (27.0-33.0); MEAN CORPUSCULAR HGB CONC 32.5 g/dl (32.0-36.5); MEAN CORPUSCULAR VOLUME 90.6 fl (80.0-96.0); MONO # 0.5 10^3/uL (0.0-0.8); NEUTROPHILS # 5.1 10^3/uL (1.5-8.5); NEUTROPHILS % 65.6 % (36.0-66.0); PLATELET COUNT, AUTOMATED 480 10^3/uL (150-450); RED BLOOD COUNT 4.89 10^6/uL (4.00-5.40); WHITE BLOOD COUNT 7.7 10^3/uL (4.0-10.0)
[2023-08-31 21:54] LABS: INR 0.94; PARTIAL THROMBOPLASTIN TIME 28.1 SECONDS (24.8-34.2); PROTHROMBIN TIME 12.3 SECONDS (12.5-14.5)
[2023-08-31 22:00] LABS: CK-MB VALUE MASS 7.3 NG/ML (<3.6)
[2023-08-31 22:03] LABS: CPK CREATINE PHOSPHOKINASE 79 U/L (34-145); MB/CK RELATIVE INDEX 9.24 (< OR =4)
[2023-08-31 22:04] LABS: THYROID STIMULATING HORMONE 0.841 uIU/ML (0.55-4.78)
[2023-08-31 22:06] LABS: FREE T4 1.01 NG/DL (0.89-1.76)
[2023-08-31 22:08] LABS: ALKALINE PHOSPHATASE 84 U/L (46-116); ALT/SGPT < 9 U/L (7.0-40); AST/SGOT 12 U/L (<34); BILIRUBIN,DIRECT < 0.1 MG/DL (<0.4); BILIRUBIN,TOTAL 0.2 MG/DL (0.3-1.2); BLOOD UREA NITROGEN < 5 MG/DL (9-23); CALCIUM LEVEL 8.7 MG/DL (8.5-10.1); CARBON DIOXIDE LEVEL 30 MMOL/L (20-31); CHLORIDE LEVEL 107 MMOL/L (98-107); CREATININE FOR GFR 0.79 MG/DL (0.55-1.30); GLOMERULAR FILTRATION RATE > 60.0 (>58); GLUCOSE, FASTING 80 MG/DL (60-100); POTASSIUM SERUM 3.7 MMOL/L (3.5-5.1); SODIUM LEVEL 137 MMOL/L (136-145); TOTAL PROTEIN 6.7 G/DL (5.7-8.2)
[2023-08-31 23:01] LABS: AMPHETAMINES LEVEL URINE NEGATIVE (NEGATIVE); BARBITURATES URINE NEGATIVE (NEGATIVE); BENZODIAZEPINES URINE NEGATIVE (NEGATIVE); CANNABINOIDS URINE POSITIVE (NEGATIVE); COCAINE METABOLITE URINE POSITIVE (NEGATIVE); METHADONE URINE NEGATIVE (NEGATIVE); OPIATES URINE NEGATIVE (NEGATIVE); PHENCYCLIDINE URINE NEGATIVE (NEGATIVE)
== END 2023-08-31 22:27 | disposition left against medical advice (07) ==
LOC: M ED 21:03
DX: I21.4 Non-ST elevation (NSTEMI) myocardial infarction (principal); F19.10 Other psychoactive substance abuse, uncomplicated; Z53.9 Procedure and treatment not carried out, unspecified reason; I25.2 Old myocardial infarction; F31.9 Bipolar disorder, unspecified; F14.10 Cocaine abuse, uncomplicated; F17.200 Nicotine dependence, unspecified, uncomplicated; Z79.899 Other long term (current) drug therapy; Z88.5 Allergy status to narcotic agent

== ENCOUNTER 2023-09-07 22:53 | Emergency (ER) | payer MEDICARE, MEDICAID ==
[~2023-09-07] VITALS: Ht 167.6 cm; Wt 90.9 kg
[~2023-09-07 22:53] MED LIST changes: -KLON1TAB PO; +KLON1TAB13 PO
[2023-09-08 00:01] LABS: BLOOD UREA NITROGEN 10 MG/DL (9-23); CALCIUM LEVEL 8.3 MG/DL (8.5-10.1); CARBON DIOXIDE LEVEL 26 MMOL/L (20-31); CHLORIDE LEVEL 101 MMOL/L (98-107); CK-MB VALUE MASS 7.9 NG/ML (<3.6); CPK CREATINE PHOSPHOKINASE 133 U/L (34-145); GLOMERULAR FILTRATION RATE > 60.0 (>58); GLUCOSE, FASTING 105 MG/DL (60-100); MB/CK RELATIVE INDEX 5.93 (< OR =4); POTASSIUM SERUM 3.7 MMOL/L (3.5-5.1); SODIUM LEVEL 133 MMOL/L (136-145)
[2023-09-08 00:17] LABS: BASO # 0.1 10^3/uL (0.0-0.2); BASO % 0.9 % (0.0-1.0); EOS # 0.1 10^3/uL (0.0-0.5); EOS % 0.8 % (0.0-3.0); HEMOGLOBIN 13.9 g/dl (12.0-15.5); LYMPH # 2.4 10^3/uL (1.5-5.0); LYMPH % 27.7 % (24.0-44.0); MEAN CORPUSCULAR HEMOGLOBIN 29.3 pg (27.0-33.0); MEAN CORPUSCULAR HGB CONC 32.3 g/dl (32.0-36.5); MEAN CORPUSCULAR VOLUME 90.5 fl (80.0-96.0); MONO # 0.7 10^3/uL (0.0-0.8); MONO % 7.6 % (2.0-8.0); NEUTROPHILS # 5.3 10^3/uL (1.5-8.5); NEUTROPHILS % 62.4 % (36.0-66.0); PLATELET COUNT, AUTOMATED 463 10^3/uL (150-450); RED BLOOD COUNT 4.75 10^6/uL (4.00-5.40); WHITE BLOOD COUNT 8.5 10^3/uL (4.0-10.0)
[2023-09-08 01:20] LABS: CK-MB VALUE MASS 7.9 NG/ML (<3.6)
[2023-09-08 01:21] LABS: MB/CK RELATIVE INDEX 6.75 (< OR =4)
[2023-09-08] MEDS: LORazepam 2 MG/ML 1ML VIAL IV STA (02:04)
[2023-09-08] MEDS: ASPIRIN 81MG CHEW TABLET PO ONE (02:21)
[2023-09-08] MEDS: NS 1,000 ML IV ONE ×2 (02:22→05:26)
[2023-09-08] MEDS: ENOXAPARIN 100MG/1ML SYRINGE (J1650 PER 10MG) SC ONE (02:22)
[2023-09-08 02:54] LABS: BARBITURATES URINE NEGATIVE (NEGATIVE); METHADONE URINE NEGATIVE (NEGATIVE); OPIATES URINE NEGATIVE (NEGATIVE)
[2023-09-08 02:55] LABS: AMPHETAMINES LEVEL URINE NEGATIVE (NEGATIVE); BENZODIAZEPINES URINE NEGATIVE (NEGATIVE); PHENCYCLIDINE URINE NEGATIVE (NEGATIVE)
[2023-09-08 02:56] LABS: CANNABINOIDS URINE POSITIVE (NEGATIVE); COCAINE METABOLITE URINE POSITIVE (NEGATIVE)
[2023-09-08 02:57] LABS: APPEARANCE, URINE CLOUDY (CLEAR); BACTERIA, URINE AUTO 2+ (NEGATIVE); BILIRUBIN, URINE AUTO NEGATIVE (NEGATIVE); BLOOD, URINE BLOOD 1+ (NEGATIVE); CALCIUM OXALATE CRYSTALS SMALL; COLOR, URINE AMBER (YELLOW); GLUCOSE, URINE (UA) AUTO NEGATIVE (NEGATIVE); KETONE, URINE AUTO NEGATIVE (NEGATIVE); LEUKOCYTE ESTERASE, URINE AUTO 3+ (NEGATIVE); MUCUS, URINE MODERATE (NEGATIVE); NITRITE, URINE AUTO POSITIVE (NEGATIVE); PROTEIN, URINE AUTO 1+ mg/dL (NEGATIVE); RBC, URINE AUTO 48 /HPF (0-3); SPECIFIC GRAVITY URINE AUTO 1.013 (1.002-1.035); SQUAMOUS EPITHELIAL CELL UR AU 2 /HPF (0-6); WBC, URINE AUTO TNTC /HPF (0-3)
[2023-09-08 03:11] LABS: CREATININE FOR GFR 0.98 MG/DL (0.55-1.30); GLOMERULAR FILTRATION RATE > 60.0 (>58)
[2023-09-08] MEDS: cefTRIAXone SOD 1 GM in D5W MINI-BAG PLUS 50 ML IV ONE (04:37)
[2023-09-08 06:10] LABS: RSV AMPLIFICATION NEGATIVE (NEGATIVE)
[2023-09-08 09:53] VITALS: BP 114/79; TEMP 98.3; O2SAT 97
== END 2023-09-08 09:59 | disposition short-term general hospital (02) ==
LOC: M ED 22:53
DX: I21.4 Non-ST elevation (NSTEMI) myocardial infarction (principal); N39.0 Urinary tract infection, site not specified; F41.9 Anxiety disorder, unspecified; F32.A Depression, unspecified; F19.10 Other psychoactive substance abuse, uncomplicated; Z79.899 Other long term (current) drug therapy; Z88.5 Allergy status to narcotic agent
CPT/HCPCS: 71045; 80048; 80307; 81001; 82550; 82553; 82565; 84484; 85025; 87631; 93005; 93041; 94760; 96361; 96372; 96374; 99285; J0696; J1650

== ENCOUNTER 2024-08-13 02:59 | Inpatient (IN) | payer MEDICARE, MEDICAID ==
[~2024-08-13] VITALS: Ht 157.5 cm; Wt 62.0 kg
[2024-08-13 04:09] LABS: AMPHETAMINES LEVEL URINE NEGATIVE (NEGATIVE); BARBITURATES URINE NEGATIVE (NEGATIVE); BENZODIAZEPINES URINE NEGATIVE (NEGATIVE); CANNABINOIDS URINE NEGATIVE (NEGATIVE); METHADONE URINE NEGATIVE (NEGATIVE); OPIATES URINE NEGATIVE (NEGATIVE); PHENCYCLIDINE URINE NEGATIVE (NEGATIVE)
[2024-08-13 04:10] LABS: COCAINE METABOLITE URINE POSITIVE (NEGATIVE)
[2024-08-13 04:12] LABS: ETHYL ALCOHOL (ETHANOL) 0.003 % (0.000-0.010)
[2024-08-13 04:14] LABS: ALBUMIN 3.3 G/DL (3.2-5.2); ALKALINE PHOSPHATASE 85 U/L (35-104); ALT/SGPT 14 U/L (7.0-40); AST/SGOT 10 U/L (<34); BILIRUBIN,DIRECT 0.1 MG/DL (<0.4); BILIRUBIN,TOTAL 0.4 MG/DL (0.3-1.2); BLOOD UREA NITROGEN 11 MG/DL (9-23); CALCIUM LEVEL 8.8 MG/DL (8.5-10.1); CARBON DIOXIDE LEVEL 26 MMOL/L (20-31); CHLORIDE LEVEL 104 MMOL/L (98-107); CREATININE FOR GFR 0.94 MG/DL (0.55-1.30); GLOMERULAR FILTRATION RATE > 60.0 (>58); GLUCOSE, FASTING 88 MG/DL (60-100); POTASSIUM SERUM 4.5 MMOL/L (3.5-5.1); SALICYLATE LEVEL < 3.0 MG/DL (<30); SODIUM LEVEL 139 MMOL/L (136-145); TOTAL PROTEIN 7.3 G/DL (5.7-8.2)
[2024-08-13 04:16] LABS: THYROID STIMULATING HORMONE 2.049 uIU/ML (0.55-4.78)
[2024-08-13 04:22] LABS: HEMOGLOBIN 14.9 g/dl (12.0-15.5); MEAN CORPUSCULAR HEMOGLOBIN 28.5 pg (27.0-33.0); MEAN CORPUSCULAR HGB CONC 32.4 g/dl (32.0-36.5); MEAN CORPUSCULAR VOLUME 88.1 fl (80.0-96.0); PLATELET COUNT, AUTOMATED 541 10^3/uL (150-450); RED BLOOD COUNT 5.22 10^6/uL (4.00-5.40); WHITE BLOOD COUNT 9.2 10^3/uL (4.0-10.0)
[2024-08-13 05:17] LABS: CK-MB VALUE MASS < 1.0 NG/ML (<3.6)
[2024-08-13 05:20] LABS: CPK CREATINE PHOSPHOKINASE 40 U/L (34-145)
[2024-08-13] MEDS ORDERED: HOME MED LIST COMPLETE! XX SCH (05:45)
[2024-08-13 07:34] LABS: CK-MB VALUE MASS < 1.0 NG/ML (<3.6)
[2024-08-13 07:35] LABS: CPK CREATINE PHOSPHOKINASE 39 U/L (34-145); MB/CK RELATIVE INDEX 2.56 (< OR =4)
[2024-08-13] MEDS: NICOTINE 14 MG/24 HR TRANSDERMAL TD SCH (09:00)
[2024-08-13] MEDS ORDERED: MOM 30ML SUSPENSION UDC PO PRN (11:20)
[2024-08-13] MEDS ORDERED: OLANZapine 5 MG TAB PO PRN (11:20)
[2024-08-13] MEDS ORDERED: MAALOX 30 ML SUSP *UDC PO PRN (11:20)
[2024-08-13] MEDS ORDERED: diphenhydrAMINE 25MG CAP PO PRN (11:20)
[2024-08-13] MEDS ORDERED: traZODone 50 MG TAB PO PRN (11:20)
[2024-08-13 13:05] VITALS: BP 121/86; TEMP 97.6; O2SAT 97
[2024-08-14 06:38] VITALS: BP 133/81; TEMP 98.2; O2SAT 98
[2024-08-14] MEDS: APIXABAN 5 MG TAB (ELIQUIS) PO SCH (12:05)
[2024-08-14] MEDS: CLOPIDOGREL 75 MG TAB PO SCH (12:05)
[2024-08-14] MEDS: ATORVASTATIN 20 MG TAB PO SCH (12:05)
[2024-08-14 13:01] VITALS: BP 123/92
[2024-08-14] MEDS: DAPAGLIFLOZIN PROPANEDIOL 10MG TABLET (FARXIGA) PO SCH (13:02)
[2024-08-14] MEDS: SPIRONOLACTONE 12.5MG PER 1/2 TABLET PO SCH (13:02)
[2024-08-14] MEDS: LISINOPRIL *2.5 MG* TAB PO SCH (13:03)
[2024-08-14] MEDS: METOPROLOL SUCC *XL* 25MG TAB (TopROL *XL*) PO SCH (13:03)
[2024-08-14 16:55] VITALS: BP 130/89; TEMP 97.3; O2SAT 100
[2024-08-15] MEDS: ACETAMINOPHEN 325 MG TAB PO PRN (06:10)
[2024-08-15 06:43] VITALS: BP 125/72; TEMP 98.4; O2SAT 97
[2024-08-15 08:49] VITALS: BP 114/82
[2024-08-15 16:03] VITALS: BP 135/76; TEMP 97.9
[2024-08-15 22:50] VITALS: BP 137/70; O2SAT 98
[2024-08-16 00:02] LABS: D-DIMER QUANT 0.28 ug/mL (<0.5); INR 0.94; PARTIAL THROMBOPLASTIN TIME 30.6 SECONDS (24.8-34.2); PROTHROMBIN TIME 12.9 SECONDS (12.5-14.5)
[2024-08-16 00:16] LABS: BASO # 0.1 10^3/uL (0.0-0.2); BASO % 1.4 % (0.0-1.0); EOS # 0.2 10^3/uL (0.0-0.5); EOS % 2.7 % (0.0-3.0); HEMATOCRIT 46.7 % (36.0-47.0); HEMOGLOBIN 15.4 g/dl (12.0-15.5); LYMPH # 2.2 10^3/uL (1.5-5.0); LYMPH % 29.6 % (24.0-44.0); MEAN CORPUSCULAR HEMOGLOBIN 28.9 pg (27.0-33.0); MEAN CORPUSCULAR VOLUME 87.8 fl (80.0-96.0); MONO # 0.7 10^3/uL (0.0-0.8); MONO % 9.5 % (2.0-8.0); NEUTROPHILS # 4.1 10^3/uL (1.5-8.5); NEUTROPHILS % 55.8 % (36.0-66.0); PLATELET COUNT, AUTOMATED 530 10^3/uL (150-450); RED BLOOD COUNT 5.32 10^6/uL (4.00-5.40); WHITE BLOOD COUNT 7.3 10^3/uL (4.0-10.0)
[2024-08-16 00:28] LABS: CK-MB VALUE MASS < 1.0 NG/ML (<3.6)
[2024-08-16 00:30] LABS: ALKALINE PHOSPHATASE 95 U/L (35-104); ALT/SGPT 13 U/L (7.0-40); AST/SGOT 10 U/L (<34); BILIRUBIN,DIRECT < 0.1 MG/DL (<0.4); BILIRUBIN,TOTAL 0.2 MG/DL (0.3-1.2); BLOOD UREA NITROGEN 16 MG/DL (9-23); CALCIUM LEVEL 9.2 MG/DL (8.5-10.1); CARBON DIOXIDE LEVEL 28 MMOL/L (20-31); CHLORIDE LEVEL 104 MMOL/L (98-107); CPK CREATINE PHOSPHOKINASE 26 U/L (34-145); CREATININE FOR GFR 0.78 MG/DL (0.55-1.30); GLOMERULAR FILTRATION RATE > 60.0 (>58); GLUCOSE, FASTING 117 MG/DL (60-100); MAGNESIUM LEVEL 1.8 MG/DL (1.8-2.4); MB/CK RELATIVE INDEX 3.84 (< OR =4); POTASSIUM SERUM 4.5 MMOL/L (3.5-5.1); SODIUM LEVEL 138 MMOL/L (136-145)
[2024-08-16 02:16] LABS: CK-MB VALUE MASS < 1.0 NG/ML (<3.6)
[2024-08-16 02:17] LABS: CPK CREATINE PHOSPHOKINASE 30 U/L (34-145); MB/CK RELATIVE INDEX 3.33 (< OR =4)
[2024-08-16 12:09] VITALS: BP 102/72
[2024-08-16] MEDS: SERTRALINE HCL 50 MG TAB PO SCH (12:15)
[2024-08-16] MEDS: carBAMazepine XR 200 MG TAB PO SCH (12:17)
[2024-08-16 15:46] VITALS: BP 128/86; TEMP 97.6; O2SAT 97
[2024-08-16] MEDS: LORazepam 1 MG TAB PO PRN (16:42)
[2024-08-16 17:22] LABS: HEMATOCRIT 47.1 % (36.0-47.0); MEAN CORPUSCULAR HEMOGLOBIN 28.1 pg (27.0-33.0); MEAN CORPUSCULAR HGB CONC 31.8 g/dl (32.0-36.5); MEAN CORPUSCULAR VOLUME 88.2 fl (80.0-96.0); PLATELET COUNT, AUTOMATED 535 10^3/uL (150-450); RED BLOOD COUNT 5.34 10^6/uL (4.00-5.40); WHITE BLOOD COUNT 7.2 10^3/uL (4.0-10.0)
[2024-08-16 17:59] LABS: ALBUMIN 3.1 G/DL (3.2-5.2); ALKALINE PHOSPHATASE 80 U/L (35-104); ALT/SGPT 14 U/L (7.0-40); AST/SGOT 11 U/L (<34); BILIRUBIN,TOTAL 0.2 MG/DL (0.3-1.2); BLOOD UREA NITROGEN 17 MG/DL (9-23); CARBON DIOXIDE LEVEL 29 MMOL/L (20-31); CHLORIDE LEVEL 99 MMOL/L (98-107); CK-MB VALUE MASS < 1.0 NG/ML (<3.6); CREATININE FOR GFR 0.76 MG/DL (0.55-1.30); GLOMERULAR FILTRATION RATE > 60.0 (>58); GLUCOSE, FASTING 92 MG/DL (60-100); POTASSIUM SERUM 4.7 MMOL/L (3.5-5.1); SODIUM LEVEL 137 MMOL/L (136-145); TOTAL PROTEIN 7.1 G/DL (5.7-8.2)
[2024-08-16 18:02] LABS: CPK CREATINE PHOSPHOKINASE 29 U/L (34-145); MB/CK RELATIVE INDEX 3.44 (< OR =4)
[2024-08-17 09:20] VITALS: BP 154/88
[2024-08-17] MEDS ORDERED: ALDA25TA2 PO (13:35)
[2024-08-17] MEDS ORDERED: CARB20TAXR PO (13:35)
[2024-08-17] MEDS ORDERED: SERT50TA29 PO (13:35)
[2024-08-17] MEDS ORDERED: FARX1TAB3 PO (13:35)
[2024-08-17] MEDS ORDERED: ATOR1TAB21 PO (13:35)
[2024-08-17] MEDS ORDERED: METO1TAB32 PO (13:35)
[2024-08-17] MEDS ORDERED: CLOP75TA2 PO (13:35)
[2024-08-17] MEDS ORDERED: ELIQ5TAB PO (13:35)
[2024-08-17] MEDS ORDERED: LISI2.5T9 PO (13:35)
== END 2024-08-17 13:41 | disposition home or self-care (01) | DRG 881 ==
LOC: EDBD 02:59 → M ED 02:59 → M ED INP 11:16 → M PSY 12:32
PROVIDERS: ADMIT Internal Medicine; ATTEND Internal Medicine
DX: F32.A Depression, unspecified (principal); R45.851 Suicidal ideations; I42.7 Cardiomyopathy due to drug and external agent; F14.10 Cocaine abuse, uncomplicated; I25.10 Atherosclerotic heart disease of native coronary artery without angina pectoris; F17.200 Nicotine dependence, unspecified, uncomplicated; Z88.5 Allergy status to narcotic agent; Z86.73 Personal history of transient ischemic attack (TIA), and cerebral infarction without residual deficits; R11.10 Vomiting, unspecified; F41.9 Anxiety disorder, unspecified; R07.89 Other chest pain

== ENCOUNTER 2024-09-09 20:43 | Emergency (ER) | payer MEDICAID, MEDICARE, OTHER ==
[~2024-09-09] VITALS: Ht 157.5 cm; Wt 62.2 kg
[~2024-09-09 20:43] MED LIST changes: +ALDA25TA2 PO; +ATOR1TAB21 PO; +CARB20TAXR PO; +CLOP75TA2 PO; +ELIQ5TAB PO; +FARX1TAB3 PO; +LISI2.5T9 PO; +METO1TAB32 PO; +SERT50TA29 PO
[2024-09-09 21:14] LABS: BASO # 0.1 10^3/uL (0.0-0.2); BASO % 0.8 % (0.0-1.0); EOS # 0.2 10^3/uL (0.0-0.5); EOS % 2.2 % (0.0-3.0); HEMATOCRIT 46.1 % (36.0-47.0); HEMOGLOBIN 14.9 g/dl (12.0-15.5); LYMPH # 2.6 10^3/uL (1.5-5.0); LYMPH % 35.8 % (24.0-44.0); MEAN CORPUSCULAR HEMOGLOBIN 28.2 pg (27.0-33.0); MEAN CORPUSCULAR HGB CONC 32.3 g/dl (32.0-36.5); MEAN CORPUSCULAR VOLUME 87.1 fl (80.0-96.0); MONO # 0.5 10^3/uL (0.0-0.8); MONO % 7.1 % (2.0-8.0); NEUTROPHILS # 3.9 10^3/uL (1.5-8.5); NEUTROPHILS % 53.8 % (36.0-66.0); PLATELET COUNT, AUTOMATED 455 10^3/uL (150-450); RED BLOOD COUNT 5.29 10^6/uL (4.00-5.40); WHITE BLOOD COUNT 7.2 10^3/uL (4.0-10.0)
[2024-09-09 21:49] LABS: BLOOD UREA NITROGEN 11 MG/DL (9-23); CALCIUM LEVEL 8.9 MG/DL (8.5-10.1); CARBON DIOXIDE LEVEL 27 MMOL/L (20-31); CHLORIDE LEVEL 104 MMOL/L (98-107); CK-MB VALUE MASS < 1.0 NG/ML (<3.6); CREATININE FOR GFR 0.67 MG/DL (0.55-1.30); GLOMERULAR FILTRATION RATE > 60.0 (>58); GLUCOSE, FASTING 71 MG/DL (60-100); POTASSIUM SERUM 4.9 MMOL/L (3.5-5.1); SODIUM LEVEL 138 MMOL/L (136-145)
[2024-09-09 21:52] LABS: CPK CREATINE PHOSPHOKINASE 62 U/L (34-145); MB/CK RELATIVE INDEX 1.61 (< OR =4)
[2024-09-09 22:41] LABS: CK-MB VALUE MASS < 1.0 NG/ML (<3.6)
[2024-09-09 22:42] LABS: CPK CREATINE PHOSPHOKINASE 48 U/L (34-145); MB/CK RELATIVE INDEX 2.08 (< OR =4)
[2024-09-09 23:45] VITALS: BP 136/56; TEMP 97; O2SAT 87
== END 2024-09-09 23:46 | disposition home or self-care (01) ==
LOC: EDBD 20:43 → M ED 20:43
DX: M79.602 Pain in left arm (principal); I45.10 Unspecified right bundle-branch block; I25.2 Old myocardial infarction; F17.200 Nicotine dependence, unspecified, uncomplicated; F19.10 Other psychoactive substance abuse, uncomplicated; Z86.79 Personal history of other diseases of the circulatory system; Z88.5 Allergy status to narcotic agent

== ENCOUNTER 2024-09-17 18:41 | Inpatient (IN) | payer MEDICARE ==
[~2024-09-17] VITALS: Ht 172.7 cm; Wt 64.5 kg
[2024-09-17 19:17] LABS: HEMATOCRIT 40.6 % (36.0-47.0); HEMOGLOBIN 13.3 g/dl (12.0-15.5); MEAN CORPUSCULAR HEMOGLOBIN 28.9 pg (27.0-33.0); MEAN CORPUSCULAR HGB CONC 32.8 g/dl (32.0-36.5); MEAN CORPUSCULAR VOLUME 88.1 fl (80.0-96.0); PLATELET COUNT, AUTOMATED 449 10^3/uL (150-450); RED BLOOD COUNT 4.61 10^6/uL (4.00-5.40); WHITE BLOOD COUNT 8.1 10^3/uL (4.0-10.0)
[2024-09-17 19:44] LABS: ETHYL ALCOHOL (ETHANOL) < 0.003 % (0.000-0.010)
[2024-09-17 19:45] LABS: HCG, SERUM QUALITATIVE NEGATIVE (NEGATIVE)
[2024-09-17 19:46] LABS: ALBUMIN 3.3 G/DL (3.2-5.2); ALKALINE PHOSPHATASE 76 U/L (35-104); ALT/SGPT 13 U/L (7.0-40); AST/SGOT 16 U/L (<34); BILIRUBIN,DIRECT 0.1 MG/DL (<0.4); BILIRUBIN,TOTAL 0.5 MG/DL (0.3-1.2); BLOOD UREA NITROGEN 20 MG/DL (9-23); CALCIUM LEVEL 8.9 MG/DL (8.5-10.1); CARBON DIOXIDE LEVEL 24 MMOL/L (20-31); CHLORIDE LEVEL 108 MMOL/L (98-107); CREATININE FOR GFR 0.74 MG/DL (0.55-1.30); GLOMERULAR FILTRATION RATE > 60.0 (>58); GLUCOSE, FASTING 114 MG/DL (60-100); POTASSIUM SERUM 3.9 MMOL/L (3.5-5.1); SALICYLATE LEVEL < 3.0 MG/DL (<30); SODIUM LEVEL 142 MMOL/L (136-145); TOTAL PROTEIN 6.9 G/DL (5.7-8.2)
[2024-09-17 19:48] LABS: THYROID STIMULATING HORMONE 0.558 uIU/ML (0.55-4.78)
[2024-09-18] MEDS ORDERED: METO1TAB87 PO (03:26)
[2024-09-18] MEDS ORDERED: DAPA10TA5 PO (03:26)
[2024-09-18] MEDS ORDERED: ATOR1TAB21 PO (03:26)
[2024-09-18] MEDS ORDERED: ELIQ5TAB PO (03:26)
[2024-09-18] MEDS ORDERED: CLOP75TA2 PO (03:26)
[2024-09-18] MEDS ORDERED: SPIR-10 PO (03:26)
[2024-09-18] MEDS ORDERED: CARB200C4 PO (03:26)
[2024-09-18] MEDS ORDERED: SERT-141 PO (03:26)
[2024-09-18] MEDS ORDERED: LISI2.5T8 PO (03:26)
[2024-09-18] MEDS ORDERED: HOME MED LIST COMPLETE! XX SCH (03:30)
[2024-09-18 07:01] LABS: AMPHETAMINES LEVEL URINE NEGATIVE (NEGATIVE); BARBITURATES URINE NEGATIVE (NEGATIVE); BENZODIAZEPINES URINE NEGATIVE (NEGATIVE); METHADONE URINE NEGATIVE (NEGATIVE)
[2024-09-18 07:02] LABS: OPIATES URINE NEGATIVE (NEGATIVE); PHENCYCLIDINE URINE NEGATIVE (NEGATIVE)
[2024-09-18 07:04] LABS: CANNABINOIDS URINE POSITIVE (NEGATIVE); COCAINE METABOLITE URINE POSITIVE (NEGATIVE)
[2024-09-18] MEDS ORDERED: carBAMazepine 200MG TABLET PO SCH (09:00)
[2024-09-18] MEDS ORDERED: METOPROLOL TART 25 MG TABLET PO SCH (09:00)
[2024-09-18] MEDS: SERTRALINE HCL 50 MG TAB PO SCH (09:31)
[2024-09-18] MEDS: DAPAGLIFLOZIN PROPANEDIOL 10MG TABLET (FARXIGA) PO SCH (09:31)
[2024-09-18] MEDS: SPIRONOLACTONE 12.5MG PER 1/2 TABLET PO SCH (09:32)
[2024-09-18] MEDS: METOPROLOL TART 25 MG TABLET PO SCH (09:32)
[2024-09-18] MEDS: CLOPIDOGREL 75 MG TAB PO SCH (09:32)
[2024-09-18] MEDS: APIXABAN 5 MG TAB (ELIQUIS) PO SCH (09:32)
[2024-09-18] MEDS: LISINOPRIL *2.5 MG* TAB PO SCH (10:42)
[2024-09-18] MEDS: carBAMazepine XR 200 MG TAB PO SCH (11:27)
[2024-09-18] MEDS ORDERED: traZODone 50 MG TAB PO PRN (19:05)
[2024-09-18] MEDS ORDERED: MOM 30ML SUSPENSION UDC PO PRN (19:05)
[2024-09-18] MEDS: ATORVASTATIN 20 MG TAB PO SCH (19:59)
[2024-09-18 21:19] VITALS: BP 126/71; TEMP 97.2; O2SAT 96
[2024-09-19 06:58] VITALS: BP 123/74; TEMP 97.9; O2SAT 96
[2024-09-19] MEDS: APIXABAN 5 MG TAB (ELIQUIS) PO SCH (09:00)
[2024-09-19] MEDS: SPIRONOLACTONE 12.5MG PER 1/2 TABLET PO SCH (09:00)
[2024-09-19] MEDS: risperiDONE 0.5 MG TAB PO SCH (09:00)
[2024-09-19] MEDS: DAPAGLIFLOZIN PROPANEDIOL 10MG TABLET (FARXIGA) PO SCH (09:00)
[2024-09-19] MEDS: CLOPIDOGREL 75 MG TAB PO SCH (16:36)
[2024-09-19] MEDS: SERTRALINE HCL 50 MG TAB PO SCH (16:36)
[2024-09-19] MEDS: LISINOPRIL *2.5 MG* TAB PO SCH (16:37)
[2024-09-19 16:59] VITALS: BP 112/67; TEMP 98.4; O2SAT 96
[2024-09-19] MEDS: ATORVASTATIN 20 MG TAB PO SCH (20:14)
[2024-09-19] MEDS: carBAMazepine XR 200 MG TAB PO SCH (20:15)
[2024-09-20 06:31] VITALS: BP 142/88; TEMP 97; O2SAT 97
[2024-09-20 08:10] VITALS: BP 142/88; TEMP 97; O2SAT 97
[2024-09-20] MEDS: METOPROLOL TART 25 MG TABLET PO SCH (09:00)
[2024-09-21 16:36] VITALS: BP 113/79; TEMP 97.4; O2SAT 96
[2024-09-21] MEDS: diphenhydrAMINE 25MG CAP PO PRN (22:57)
[2024-09-22] MEDS: ACETAMINOPHEN 325 MG TAB PO PRN (14:37)
[2024-09-22 14:42] VITALS: BP 110/65; TEMP 97.7; O2SAT 98
[2024-09-22 15:45] VITALS: BP 122/69; TEMP 97.5; O2SAT 98
[2024-09-22] MEDS: diphenhydrAMINE 25MG CAP PO SCH (20:26)
[2024-09-22] MEDS: ASPIRIN 81MG CHEW TABLET PO ONE (21:11)
[2024-09-22] MEDS: LORazepam 1 MG TAB PO ONE (21:12)
[2024-09-22 21:56] LABS: CK-MB VALUE MASS < 1.0 NG/ML (<3.6)
[2024-09-22 21:58] LABS: CPK CREATINE PHOSPHOKINASE 34 U/L (34-145); MB/CK RELATIVE INDEX 2.94 (< OR =4)
[2024-09-23 08:39] VITALS: BP 111/72
[2024-09-23 16:01] VITALS: BP 101/57; TEMP 98.3; O2SAT 97
[2024-09-24 06:52] VITALS: BP 115/63; TEMP 97.1; O2SAT 96
[2024-09-24 08:03] VITALS: BP 122/82
[2024-09-24 15:08] VITALS: BP 113/63; TEMP 97.6; O2SAT 100
[2024-09-24] MEDS: MAALOX 30 ML SUSP *UDC PO PRN (18:42)
[2024-09-24] MEDS: RISPERIDONE 1 MG TAB PO SCH (21:00)
[2024-09-25 09:32] VITALS: BP 106/75
[2024-09-25] MEDS ORDERED: diphenhydrAMINE 50MG CAP PO PRN (09:50)
[2024-09-25] MEDS: OLANZapine 5 MG TAB PO SCH (10:53)
[2024-09-26 06:18] VITALS: BP 122/72; TEMP 97.8; O2SAT 99
[2024-09-26 13:26] LABS: BASO # 0.1 10^3/uL (0.0-0.2); BASO % 0.9 % (0.0-1.0); EOS # 0.1 10^3/uL (0.0-0.5); EOS % 1.2 % (0.0-3.0); HEMATOCRIT 41.9 % (36.0-47.0); HEMOGLOBIN 13.3 g/dl (12.0-15.5); LYMPH # 2.8 10^3/uL (1.5-5.0); LYMPH % 40.6 % (24.0-44.0); MEAN CORPUSCULAR HEMOGLOBIN 28.7 pg (27.0-33.0); MEAN CORPUSCULAR HGB CONC 31.7 g/dl (32.0-36.5); MEAN CORPUSCULAR VOLUME 90.3 fl (80.0-96.0); MONO # 0.5 10^3/uL (0.0-0.8); MONO % 7.9 % (2.0-8.0); NEUTROPHILS # 3.3 10^3/uL (1.5-8.5); NEUTROPHILS % 48.7 % (36.0-66.0); PLATELET COUNT, AUTOMATED 405 10^3/uL (150-450); RED BLOOD COUNT 4.64 10^6/uL (4.00-5.40); WHITE BLOOD COUNT 6.8 10^3/uL (4.0-10.0)
[2024-09-26] MEDS: CLOTRIMAZOLE 1% VAG CR 45 GM PV SCH (21:00)
[2024-09-27 08:51] VITALS: BP 133/87
[2024-09-27 08:55] VITALS: BP 133/87
[2024-09-27] MEDS ORDERED: DIPH50CA PO (10:12)
[2024-09-27] MEDS ORDERED: OLAN1TAB16 PO (10:12)
== END 2024-09-27 13:45 | disposition home or self-care (01) | DRG 885 ==
LOC: M ED 18:41 → M ED INP 09-18 19:04 → M PSY 09-18 21:05
PROVIDERS: ADMIT Psychiatry & Neurology Neurology; ATTEND Psychiatry & Neurology Neurology
DX: F31.64 Bipolar disorder, current episode mixed, severe, with psychotic features (principal); I42.7 Cardiomyopathy due to drug and external agent; F41.1 Generalized anxiety disorder; F15.90 Other stimulant use, unspecified, uncomplicated; Z79.899 Other long term (current) drug therapy; Z88.5 Allergy status to narcotic agent; Z87.891 Personal history of nicotine dependence; I25.10 Atherosclerotic heart disease of native coronary artery without angina pectoris; Z86.73 Personal history of transient ischemic attack (TIA), and cerebral infarction without residual deficits; I25.2 Old myocardial infarction; R56.9 Unspecified convulsions; F14.90 Cocaine use, unspecified, uncomplicated

== ENCOUNTER 2024-10-12 01:22 | Inpatient (IN) | payer MEDICARE ==
[~2024-10-12] VITALS: Ht 157.5 cm; Wt 64.2 kg
[~2024-10-12 01:22] MED LIST changes: +CARB200C4 PO; +DAPA10TA5 PO; +LISI2.5T8 PO; +METO1TAB87 PO; +OLAN1TAB16 PO; +SERT-141 PO; +SPIR-10 PO
[2024-10-12 03:57] LABS: HEMATOCRIT 39.5 % (36.0-47.0); HEMOGLOBIN 12.8 g/dl (12.0-15.5); MEAN CORPUSCULAR HEMOGLOBIN 29.1 pg (27.0-33.0); MEAN CORPUSCULAR HGB CONC 32.4 g/dl (32.0-36.5); MEAN CORPUSCULAR VOLUME 89.8 fl (80.0-96.0); PLATELET COUNT, AUTOMATED 509 10^3/uL (150-450); WHITE BLOOD COUNT 6.2 10^3/uL (4.0-10.0)
[2024-10-12 04:18] LABS: ETHYL ALCOHOL (ETHANOL) 0.003 % (0.000-0.010)
[2024-10-12 04:20] LABS: ALBUMIN 3.2 G/DL (3.2-5.2); ALKALINE PHOSPHATASE 76 U/L (35-104); ALT/SGPT 12 U/L (7.0-40); AST/SGOT 10 U/L (<34); BILIRUBIN,DIRECT 0.1 MG/DL (<0.4); BILIRUBIN,TOTAL 0.4 MG/DL (0.3-1.2); BLOOD UREA NITROGEN 12 MG/DL (9-23); CARBON DIOXIDE LEVEL 27 MMOL/L (20-31); CHLORIDE LEVEL 107 MMOL/L (98-107); CREATININE FOR GFR 0.77 MG/DL (0.55-1.30); GLOMERULAR FILTRATION RATE > 90.0 (>58); GLUCOSE, FASTING 116 MG/DL (60-100); POTASSIUM SERUM 3.9 MMOL/L (3.5-5.1); SALICYLATE LEVEL < 3.0 MG/DL (<30); SODIUM LEVEL 141 MMOL/L (136-145); TOTAL PROTEIN 6.6 G/DL (5.7-8.2)
[2024-10-12 04:25] LABS: THYROID STIMULATING HORMONE 0.372 uIU/ML (0.55-4.78)
[2024-10-12 05:33] LABS: BARBITURATES URINE NEGATIVE (NEGATIVE); BENZODIAZEPINES URINE NEGATIVE (NEGATIVE); METHADONE URINE NEGATIVE (NEGATIVE); OPIATES URINE NEGATIVE (NEGATIVE); PHENCYCLIDINE URINE NEGATIVE (NEGATIVE)
[2024-10-12 05:43] LABS: AMPHETAMINES LEVEL URINE POSITIVE (NEGATIVE); CANNABINOIDS URINE POSITIVE (NEGATIVE); COCAINE METABOLITE URINE POSITIVE (NEGATIVE)
[2024-10-12] MEDS ORDERED: OVERDOSE RESCUE KIT XX SCH (11:05)
[2024-10-12 15:05] LABS: HCG, SERUM QUALITATIVE NEGATIVE (NEGATIVE)
[2024-10-12 15:35] VITALS: BP 152/87; TEMP 97.5; O2SAT 96
[2024-10-12] MEDS ORDERED: DIPH50CA PO (16:04)
[2024-10-12] MEDS ORDERED: ZYPR5TAB2 PO (16:04)
[2024-10-12] MEDS ORDERED: HOME MED LIST COMPLETE! XX SCH (16:05)
[2024-10-12] MEDS ORDERED: traZODone 50 MG TAB PO PRN (16:50)
[2024-10-12] MEDS ORDERED: MAALOX 30 ML SUSP *UDC PO PRN (16:50)
[2024-10-12] MEDS ORDERED: diphenhydrAMINE 25MG CAP PO PRN (16:50)
[2024-10-12] MEDS ORDERED: MOM 30ML SUSPENSION UDC PO PRN (16:50)
[2024-10-12] MEDS: OLANZapine 5 MG TAB PO PRN (17:45)
[2024-10-12] MEDS: IBUPROFEN 400MG TAB PO PRN (17:45)
[2024-10-13 06:18] VITALS: BP 114/68; TEMP 97.2; O2SAT 99
[2024-10-13 09:19] LABS: FREE T4 1.11 NG/DL (0.89-1.76); THYROXINE (T4) 8.1 UG/DL (4.5-10.9)
[2024-10-13] MEDS: OLANZapine 5 MG TAB PO SCH ×2 (09:28→21:42)
[2024-10-13] MEDS: CLOPIDOGREL 75 MG TAB PO SCH (11:21)
[2024-10-13] MEDS: METOPROLOL TART 25 MG TABLET PO SCH (11:22)
[2024-10-13] MEDS: DAPAGLIFLOZIN PROPANEDIOL 10MG TABLET (FARXIGA) PO SCH (11:22)
[2024-10-13] MEDS: APIXABAN 5 MG TAB (ELIQUIS) PO SCH (11:22)
[2024-10-13] MEDS: LISINOPRIL *2.5 MG* TAB PO SCH (11:23)
[2024-10-13] MEDS: LIDOCAINE 5% (LIDODERM) PATCH TD ONE (11:24)
[2024-10-13] MEDS: SPIRONOLACTONE 12.5MG PER 1/2 TABLET PO SCH (12:44)
[2024-10-13] MEDS: carBAMazepine XR 200 MG TAB PO SCH (12:44)
[2024-10-13] MEDS: ATORVASTATIN 20 MG TAB PO SCH (21:42)
[2024-10-14] MEDS: LIDOCAINE 5% (LIDODERM) PATCH TD SCH (09:09)
[2024-10-14 15:41] VITALS: BP 117/71; TEMP 97.8; O2SAT 100
[2024-10-14] MEDS: ACETAMINOPHEN 325 MG TAB PO PRN (20:59)
[2024-10-15 16:05] VITALS: BP 140/85; TEMP 98.1; O2SAT 96
[2024-10-16 08:49] VITALS: BP 131/86
[2024-10-16 15:55] VITALS: BP 135/61; TEMP 97.6; O2SAT 98
[2024-10-17] MEDS: SERTRALINE HCL 25 MG TABLET PO SCH (08:40)
[2024-10-17 08:52] VITALS: BP 108/76
[2024-10-17 08:54] VITALS: BP 108/76
[2024-10-17] MEDS ORDERED: LIDO5TD TD (09:20)
[2024-10-17] MEDS ORDERED: OLAN1TAB16 PO (09:20)
[2024-10-17] MEDS ORDERED: SERT25TA21 PO (09:20)
[2024-10-17] MEDS ORDERED: TRAZ-252 PO (09:20)
[2024-10-17] MEDS ORDERED: ALDA25TA2 PO (09:20)
== END 2024-10-17 12:02 | disposition home or self-care (01) | DRG 885 ==
LOC: M ED 01:22 → M ED INP 13:21 → M PSY 15:35
PROVIDERS: ADMIT Psychiatry & Neurology Psychiatry; ATTEND Psychiatry & Neurology Psychiatry
DX: F31.64 Bipolar disorder, current episode mixed, severe, with psychotic features (principal); Z59.00 Homelessness unspecified; R45.851 Suicidal ideations; I50.22 Chronic systolic (congestive) heart failure; I42.7 Cardiomyopathy due to drug and external agent; F29 Unspecified psychosis not due to a substance or known physiological condition; Z88.5 Allergy status to narcotic agent; Z79.899 Other long term (current) drug therapy; I25.2 Old myocardial infarction; F17.200 Nicotine dependence, unspecified, uncomplicated; K59.00 Constipation, unspecified; F41.9 Anxiety disorder, unspecified; G40.909 Epilepsy, unspecified, not intractable, without status epilepticus; F43.10 Post-traumatic stress disorder, unspecified; F15.10 Other stimulant abuse, uncomplicated; F14.10 Cocaine abuse, uncomplicated; F12.10 Cannabis abuse, uncomplicated

== ENCOUNTER 2024-11-05 16:05 | Emergency (ER) | payer MEDICARE ==
[~2024-11-05] VITALS: Ht 157.5 cm; Wt 64.8 kg
[~2024-11-05 16:05] MED LIST changes: +LIDO5TD TD; +SERT25TA21 PO; +TRAZ-252 PO; +ZYPR5TAB2 PO
[2024-11-05 16:18] VITALS: BP 124/82; TEMP 97.8; O2SAT 98
[2024-11-06] MEDS ORDERED: TRAZ-252 PO (08:31)
[2024-11-06] MEDS ORDERED: SERT25TA21 PO (08:31)
[2024-11-06] MEDS ORDERED: OLAN1TAB16 PO (08:31)
== END 2024-11-05 16:20 | disposition left against medical advice (07) ==
LOC: M ED 16:05
DX: Z53.21 Procedure and treatment not carried out due to patient leaving prior to being seen by health care provider (principal)

== ENCOUNTER 2025-01-05 16:12 | Emergency (ER) | payer MEDICARE ==
[~2025-01-05] VITALS: Ht 157.5 cm; Wt 59.4 kg
[2025-01-05 16:22] VITALS: BP 153/86; TEMP 99.3; O2SAT 97
== END 2025-01-05 18:51 | disposition left against medical advice (07) ==
LOC: M ED 16:12
DX: Z53.21 Procedure and treatment not carried out due to patient leaving prior to being seen by health care provider (principal)

== ENCOUNTER 2025-01-05 18:48 | Inpatient (IN) | payer MEDICARE ==
[~2025-01-05] VITALS: Ht 157.5 cm; Wt 60.4 kg
[2025-01-05 21:09] LABS: PLATELET COUNT, AUTOMATED 446 10^3/uL (150-450)
[2025-01-05 21:32] LABS: ETHYL ALCOHOL (ETHANOL) < 0.003 % (0.000-0.010); SALICYLATE LEVEL < 3.0 MG/DL (<30)
[2025-01-05 21:34] LABS: ALT/SGPT < 9 U/L (7.0-40); AST/SGOT 14 U/L (<34); CALCIUM LEVEL 8.7 MG/DL (8.5-10.1); CARBON DIOXIDE LEVEL 26 MMOL/L (20-31); CHLORIDE LEVEL 106 MMOL/L (98-107); CREATININE FOR GFR 0.85 MG/DL (0.55-1.30); GLOMERULAR FILTRATION RATE 86.6 (>58); POTASSIUM SERUM 4.0 MMOL/L (3.5-5.1); SODIUM LEVEL 143 MMOL/L (136-145)
[2025-01-05 21:43] LABS: HCG, SERUM QUALITATIVE NEGATIVE (NEGATIVE)
[2025-01-05] MEDS ORDERED: HOME MED LIST COMPLETE! XX SCH (21:45)
[2025-01-05 21:54] LABS: AMPHETAMINES LEVEL URINE NEGATIVE (NEGATIVE); BARBITURATES URINE NEGATIVE (NEGATIVE); BENZODIAZEPINES URINE NEGATIVE (NEGATIVE); METHADONE URINE NEGATIVE (NEGATIVE); OPIATES URINE NEGATIVE (NEGATIVE); PHENCYCLIDINE URINE NEGATIVE (NEGATIVE)
[2025-01-05 21:56] LABS: CANNABINOIDS URINE POSITIVE (NEGATIVE); COCAINE METABOLITE URINE POSITIVE (NEGATIVE)
[2025-01-06] MEDS ORDERED: MOM 30 ML SUSPENSION UDC PO PRN (11:25)
[2025-01-06] MEDS ORDERED: MAALOX 30 ML SUSP *UDC PO PRN (11:25)
[2025-01-06 12:33] VITALS: BP 141/89; TEMP 97.7; O2SAT 100
[2025-01-06] MEDS: ACETAMINOPHEN 325 MG TAB PO PRN (13:05)
[2025-01-06] MEDS: SERTRALINE HCL 25 MG TABLET PO SCH (13:05)
[2025-01-06 15:34] VITALS: BP 129/85; TEMP 97; O2SAT 97
[2025-01-06] MEDS: carBAMazepine XR 200 MG TAB PO SCH (21:19)
[2025-01-06] MEDS: OLANZapine 5 MG TAB PO SCH (21:19)
[2025-01-06] MEDS: ATORVASTATIN 20 MG TAB PO SCH (21:19)
[2025-01-06] MEDS: APIXABAN 5 MG TAB PO SCH (21:19)
[2025-01-06] MEDS: traZODone 50 MG TAB PO PRN (21:19)
[2025-01-07 06:37] VITALS: BP 129/67; TEMP 97.2; O2SAT 98
[2025-01-07] MEDS: LISINOPRIL 2.5 MG TAB PO SCH (09:54)
[2025-01-07 09:55] VITALS: BP 129/67
[2025-01-07] MEDS: SPIRONOLACTONE 12.5MG PER 1/2 TABLET PO SCH (09:55)
[2025-01-07] MEDS: METOPROLOL TART 25 MG TABLET PO SCH (09:55)
[2025-01-07] MEDS: DAPAGLIFLOZIN PROPANEDIOL 10 MG TABLET PO SCH (09:55)
[2025-01-07] MEDS: CLOPIDOGREL 75 MG TAB PO SCH (09:55)
[2025-01-07 15:17] VITALS: BP 123/70; TEMP 98.3; O2SAT 95
[2025-01-08 06:36] VITALS: BP 118/80; TEMP 97.5; O2SAT 95
[2025-01-08] MEDS ORDERED: CARB20TAXR PO (08:19)
== END 2025-01-08 11:37 | disposition home or self-care (01) | DRG 885 ==
LOC: M ED 18:48 → M ED INP 01-06 11:23 → M PSY 01-06 12:39
PROVIDERS: ADMIT General Practice; ATTEND General Practice
DX: F29 Unspecified psychosis not due to a substance or known physiological condition (principal); F14.950 Cocaine use, unspecified with cocaine-induced psychotic disorder with delusions; F31.9 Bipolar disorder, unspecified; F60.89 Other specific personality disorders; F60.3 Borderline personality disorder; F60.2 Antisocial personality disorder; Z91.148 Patient's other noncompliance with medication regimen for other reason; Z88.5 Allergy status to narcotic agent; I25.2 Old myocardial infarction; F17.200 Nicotine dependence, unspecified, uncomplicated; F41.9 Anxiety disorder, unspecified; F43.10 Post-traumatic stress disorder, unspecified; K59.00 Constipation, unspecified; F12.90 Cannabis use, unspecified, uncomplicated; Z79.899 Other long term (current) drug therapy; I25.10 Atherosclerotic heart disease of native coronary artery without angina pectoris

== ENCOUNTER → 2025-01-19 | Outpatient (REF) | payer MEDICARE, MEDICAID ==
[2025-01-19 15:37] LABS: ALT/SGPT 17 U/L (7.0-40); AST/SGOT 15 U/L (<34); CALCIUM LEVEL 9.7 MG/DL (8.5-10.1); CARBON DIOXIDE LEVEL 30 MMOL/L (20-31); CHLORIDE LEVEL 102 MMOL/L (98-107); CHOLESTEROL LEVEL 246 MG/DL (<200); CHOLESTEROL RISK RATIO 3.58 (<5); CREATININE FOR GFR 0.78 MG/DL (0.55-1.30); GLOMERULAR FILTRATION RATE > 90.0 (>58); LDL CHOLESTEROL 156.6 MG/DL (<100); NON-HDL-C 177.4 MG/DL; POTASSIUM SERUM 5.7 MMOL/L (3.5-5.1); SODIUM LEVEL 139 MMOL/L (136-145); TRIGLYCERIDES LEVEL 104 MG/DL (<150)
[2025-01-19 15:45] LABS: BASO # 0.1 10^3/uL (0.0-0.2); BASO % 1.5 % (0.0-1.0); EOS # 0.1 10^3/uL (0.0-0.5); EOS % 1.8 % (0.0-3.0); LYMPH # 2.7 10^3/uL (1.5-5.0); LYMPH % 41.4 % (24.0-44.0); MONO # 0.5 10^3/uL (0.0-0.8); MONO % 6.8 % (2.0-8.0); NEUTROPHILS # 3.2 10^3/uL (1.5-8.5); NEUTROPHILS % 48.0 % (36.0-66.0); PLATELET COUNT, AUTOMATED 503 10^3/uL (150-450)
[2025-01-19 16:10] LABS: HIV 1&2 SCREEN NEGATIVE (NEGATIVE)
[2025-01-19 16:18] LABS: HEPATITIS C VIRUS ABY INDEX < 0.02 INDEX (<0.8)
[2025-01-23 20:02] LABS: LYME TOTAL ANTIBODY CIA <= 0.90 Index (<=0.90)
== END ==
LOC: M LAB REF 14:57
PROVIDERS: ATTEND Pediatrics
DX: I42.7 Cardiomyopathy due to drug and external agent (principal); R20.2 Paresthesia of skin; Z11.4 Encounter for screening for human immunodeficiency virus [HIV]; Z11.59 Encounter for screening for other viral diseases; W57.XXXA Bitten or stung by nonvenomous insect and other nonvenomous arthropods, initial encounter; S50.861A Insect bite (nonvenomous) of right forearm, initial encounter; Z79.899 Other long term (current) drug therapy

== ENCOUNTER → 2025-01-30 | Outpatient (REF) | payer MEDICARE, MEDICAID | LOC: M LAB REF 11:30 | PROVIDERS: ATTEND Pediatrics | DX: R20.2 Paresthesia of skin (principal) ==

== ENCOUNTER 2025-02-05 05:17 | Inpatient (IN) | payer MEDICARE, MEDICAID ==
[~2025-02-05] VITALS: Ht 157.5 cm; Wt 63.6 kg
[2025-02-05 06:09] LABS: BASO # 0.1 10^3/uL (0.0-0.2); BASO % 1.1 % (0.0-1.0); EOS # 0.1 10^3/uL (0.0-0.5); EOS % 1.5 % (0.0-3.0); LYMPH # 2.2 10^3/uL (1.5-5.0); LYMPH % 33.9 % (24.0-44.0); MONO # 0.6 10^3/uL (0.0-0.8); MONO % 8.5 % (2.0-8.0); NEUTROPHILS # 3.6 10^3/uL (1.5-8.5); NEUTROPHILS % 54.8 % (36.0-66.0); PLATELET COUNT, AUTOMATED 448 10^3/uL (150-450)
[2025-02-05 06:35] LABS: CALCIUM LEVEL 9.0 MG/DL (8.5-10.1); CARBON DIOXIDE LEVEL 23 MMOL/L (20-31); CHLORIDE LEVEL 106 MMOL/L (98-107); CREATININE FOR GFR 0.75 MG/DL (0.55-1.30); GLOMERULAR FILTRATION RATE > 90.0 (>58); MAGNESIUM LEVEL 1.9 MG/DL (1.8-2.4); POTASSIUM SERUM 3.8 MMOL/L (3.5-5.1); SODIUM LEVEL 140 MMOL/L (136-145)
[2025-02-05 06:42] LABS: CPK CREATINE PHOSPHOKINASE 131 U/L (34-145)
[2025-02-05 07:33] LABS: ETHYL ALCOHOL (ETHANOL) < 0.003 % (0.000-0.010)
[2025-02-05 07:34] LABS: SALICYLATE LEVEL < 3.0 MG/DL (<30)
[2025-02-05 07:35] LABS: ALT/SGPT 11 U/L (7.0-40); AST/SGOT 19 U/L (<34)
[2025-02-05] MEDS: IPRATROPIUM 0.5 MG/ALBUTEROL 2.5 MG INH SOL UD 3 ML NEB ONE (09:37)
[2025-02-05 10:04] LABS: AMPHETAMINES LEVEL URINE NEGATIVE (NEGATIVE); BARBITURATES URINE NEGATIVE (NEGATIVE); BENZODIAZEPINES URINE NEGATIVE (NEGATIVE); CANNABINOIDS URINE POSITIVE (NEGATIVE); COCAINE METABOLITE URINE POSITIVE (NEGATIVE); METHADONE URINE NEGATIVE (NEGATIVE); OPIATES URINE NEGATIVE (NEGATIVE); PHENCYCLIDINE URINE NEGATIVE (NEGATIVE)
[2025-02-05] MEDS ORDERED: LEXA1TAB PO (12:47)
[2025-02-05] MEDS ORDERED: HOME MED LIST COMPLETE! XX SCH (12:50)
[2025-02-05] MEDS ORDERED: traZODone 50 MG TAB PO PRN (14:10)
[2025-02-05] MEDS ORDERED: ACETAMINOPHEN 325 MG TAB PO PRN (14:10)
[2025-02-05] MEDS ORDERED: MOM 30 ML SUSPENSION UDC PO PRN (14:10)
[2025-02-05] MEDS ORDERED: MAALOX 30 ML SUSP *UDC PO PRN (14:10)
[2025-02-05] MEDS ORDERED: HALOPERIDOL 5 MG TAB PO PRN (14:10)
[2025-02-05] MEDS ORDERED: OLANZapine 5 MG TAB PO PRN (14:10)
[2025-02-05 17:44] VITALS: BP 113/61; TEMP 97.5; O2SAT 98
[2025-02-05] MEDS: ATORVASTATIN 20 MG TAB PO SCH (20:48)
[2025-02-05] MEDS: carBAMazepine XR 200 MG TAB PO SCH (20:49)
[2025-02-05] MEDS: LORazepam 1 MG TAB PO PRN (20:53)
[2025-02-05] MEDS: METOPROLOL TART 25 MG TABLET PO SCH (20:55)
[2025-02-05] MEDS: APIXABAN 5 MG TAB PO SCH (20:55)
[2025-02-06 06:45] VITALS: BP 139/81; TEMP 98; O2SAT 97
[2025-02-06] MEDS: NICOTINE 14 MG/24 HR TRANSDERMAL TD SCH (08:10)
[2025-02-06] MEDS: ESCITALOPRAM OXALATE 10 MG TABLET PO SCH (08:14)
[2025-02-06] MEDS: DAPAGLIFLOZIN PROPANEDIOL 10 MG TABLET PO SCH (08:14)
[2025-02-06] MEDS: SPIRONOLACTONE 12.5MG PER 1/2 TABLET PO SCH (08:14)
[2025-02-06] MEDS: CLOPIDOGREL 75 MG TAB PO SCH (08:14)
[2025-02-06] MEDS: LISINOPRIL 2.5 MG TAB PO SCH (08:15)
[2025-02-06] MEDS: IBUPROFEN 400 MG TAB PO PRN (08:18)
[2025-02-06 16:28] VITALS: BP 109/78; TEMP 98.1; O2SAT 98
[2025-02-08 06:44] VITALS: BP 114/67; TEMP 98; O2SAT 97
[2025-02-08 08:20] VITALS: BP 142/80
[2025-02-08] MEDS ORDERED: LEXA1TAB PO (10:09)
== END 2025-02-08 10:23 | disposition home or self-care (01) | DRG 885 ==
LOC: M ED 05:17 → EDBD 05:17 → M ED INP 14:10 → M PSY 16:53
PROVIDERS: ADMIT Internal Medicine; ATTEND Internal Medicine
DX: F29 Unspecified psychosis not due to a substance or known physiological condition (principal); R45.851 Suicidal ideations; I42.7 Cardiomyopathy due to drug and external agent; F60.3 Borderline personality disorder; F60.6 Avoidant personality disorder; F31.64 Bipolar disorder, current episode mixed, severe, with psychotic features; F60.89 Other specific personality disorders; M54.2 Cervicalgia; F12.90 Cannabis use, unspecified, uncomplicated; Z88.5 Allergy status to narcotic agent; F41.9 Anxiety disorder, unspecified; Z79.899 Other long term (current) drug therapy; I25.10 Atherosclerotic heart disease of native coronary artery without angina pectoris; F17.200 Nicotine dependence, unspecified, uncomplicated; F14.90 Cocaine use, unspecified, uncomplicated

== ENCOUNTER 2025-03-16 04:58 | Emergency (ER) | payer MEDICARE, MEDICAID ==
[~2025-03-16] VITALS: Ht 157.5 cm; Wt 63.6 kg
[~2025-03-16 04:58] MED LIST changes: -DIPH50CA PO; +DIPH50CA31 PO; +LEXA1TAB PO
[2025-03-16 06:24] LABS: BASO # 0.1 10^3/uL (0.0-0.2); BASO % 0.9 % (0.0-1.0); EOS # 0.2 10^3/uL (0.0-0.5); EOS % 1.8 % (0.0-3.0); LYMPH # 3.1 10^3/uL (1.5-5.0); LYMPH % 36.3 % (24.0-44.0); MONO # 0.7 10^3/uL (0.0-0.8); MONO % 8.6 % (2.0-8.0); NEUTROPHILS # 4.4 10^3/uL (1.5-8.5); NEUTROPHILS % 51.9 % (36.0-66.0); PLATELET COUNT, AUTOMATED 524 10^3/uL (150-450)
[2025-03-16 06:41] LABS: METHADONE URINE NEGATIVE (NEGATIVE); OPIATES URINE NEGATIVE (NEGATIVE); PHENCYCLIDINE URINE NEGATIVE (NEGATIVE)
[2025-03-16 06:42] LABS: AMPHETAMINES LEVEL URINE NEGATIVE (NEGATIVE); BARBITURATES URINE NEGATIVE (NEGATIVE); BENZODIAZEPINES URINE NEGATIVE (NEGATIVE)
[2025-03-16 06:43] LABS: ETHYL ALCOHOL (ETHANOL) < 0.003 % (0.000-0.010)
[2025-03-16 06:44] LABS: CANNABINOIDS URINE POSITIVE (NEGATIVE); COCAINE METABOLITE URINE POSITIVE (NEGATIVE)
[2025-03-16 06:45] LABS: SALICYLATE LEVEL < 3.0 MG/DL (<30)
[2025-03-16 06:46] LABS: ALT/SGPT 11 U/L (7.0-40); AST/SGOT 13 U/L (<34); CALCIUM LEVEL 9.0 MG/DL (8.5-10.1); CARBON DIOXIDE LEVEL 30 MMOL/L (20-31); CHLORIDE LEVEL 105 MMOL/L (98-107); CREATININE FOR GFR 0.83 MG/DL (0.55-1.30); GLOMERULAR FILTRATION RATE 89.1 (>58); MAGNESIUM LEVEL 1.8 MG/DL (1.8-2.4); POTASSIUM SERUM 5.1 MMOL/L (3.5-5.1); SODIUM LEVEL 141 MMOL/L (136-145)
[2025-03-16 08:00] VITALS: BP 133/84; TEMP 97.6; O2SAT 94
== END 2025-03-16 10:28 | disposition home or self-care (01) ==
LOC: M ED 04:58
DX: F14.151 Cocaine abuse with cocaine-induced psychotic disorder with hallucinations (principal); I45.10 Unspecified right bundle-branch block; I45.81 Long QT syndrome; F43.10 Post-traumatic stress disorder, unspecified; F17.200 Nicotine dependence, unspecified, uncomplicated; Z86.79 Personal history of other diseases of the circulatory system; Z88.5 Allergy status to narcotic agent; Z79.01 Long term (current) use of anticoagulants; Z79.02 Long term (current) use of antithrombotics/antiplatelets; Z79.899 Other long term (current) drug therapy

== ENCOUNTER 2025-04-07 | Inpatient (IN) | payer MEDICARE, MEDICAID ==
[~2025-04-07] VITALS: Ht 154.9 cm; Wt 63.0 kg
[2025-04-07 01:11] LABS: PLATELET COUNT, AUTOMATED 514 10^3/uL (150-450)
[2025-04-07 01:38] LABS: ALT/SGPT 14 U/L (7.0-40); AST/SGOT 23 U/L (<34); CALCIUM LEVEL 9.5 MG/DL (8.5-10.1); CARBON DIOXIDE LEVEL 26 MMOL/L (20-31); CHLORIDE LEVEL 103 MMOL/L (98-107); CREATININE FOR GFR 0.87 MG/DL (0.55-1.30); GLOMERULAR FILTRATION RATE 84.2 (>58); POTASSIUM SERUM 4.4 MMOL/L (3.5-5.1); SALICYLATE LEVEL < 3.0 MG/DL (<30); SODIUM LEVEL 139 MMOL/L (136-145)
[2025-04-07] MEDS: IBUPROFEN 600 MG TAB PO ONE ×2 (02:08→11:36)
[2025-04-07 02:27] LABS: AMPHETAMINES LEVEL URINE NEGATIVE (NEGATIVE)
[2025-04-07 02:28] LABS: BARBITURATES URINE NEGATIVE (NEGATIVE); BENZODIAZEPINES URINE NEGATIVE (NEGATIVE); METHADONE URINE NEGATIVE (NEGATIVE); OPIATES URINE NEGATIVE (NEGATIVE); PHENCYCLIDINE URINE NEGATIVE (NEGATIVE)
[2025-04-07 02:42] LABS: CANNABINOIDS URINE POSITIVE (NEGATIVE); COCAINE METABOLITE URINE POSITIVE (NEGATIVE)
[2025-04-07 04:33] LABS: ETHYL ALCOHOL (ETHANOL) < 0.003 % (0.000-0.010)
[2025-04-07] MEDS ORDERED: ATOR40TA75 PO (14:03)
[2025-04-07] MEDS ORDERED: HYDR1CAP25 PO (14:03)
[2025-04-07] MEDS ORDERED: LURA20TA PO (14:03)
[2025-04-07] MEDS ORDERED: BUSP5TA PO (14:03)
[2025-04-07] MEDS ORDERED: HOME MED LIST COMPLETE! XX SCH (14:05)
[2025-04-07] MEDS ORDERED: MAALOX 30 ML SUSP *UDC PO PRN (15:15)
[2025-04-07] MEDS ORDERED: ACETAMINOPHEN 325 MG TAB PO PRN (15:15)
[2025-04-07] MEDS ORDERED: MOM 30 ML SUSPENSION UDC PO PRN (15:15)
[2025-04-07] MEDS: LURASIDONE HCL 20 MG TAB PO SCH (18:37)
[2025-04-07] MEDS: METOPROLOL TART 25 MG TABLET PO SCH (21:42)
[2025-04-07] MEDS: APIXABAN 5 MG TAB PO SCH (21:43)
[2025-04-07] MEDS: ATORVASTATIN 20 MG TAB PO SCH (21:43)
[2025-04-07] MEDS: carBAMazepine XR 200 MG TAB PO SCH (22:06)
[2025-04-07] MEDS: busPIRone 5 MG TAB PO SCH (22:06)
[2025-04-07 22:19] VITALS: BP 125/65; TEMP 98.6; O2SAT 99
[2025-04-07] MEDS: IBUPROFEN 400 MG TAB PO PRN (23:17)
[2025-04-08 06:50] VITALS: BP 107/56; TEMP 98.1; O2SAT 97
[2025-04-08] MEDS: NICOTINE 14 MG/24 HR TRANSDERMAL TD SCH (08:49)
[2025-04-08] MEDS: ESCITALOPRAM OXALATE 10 MG TABLET PO SCH (08:49)
[2025-04-08] MEDS: CLOPIDOGREL 75 MG TAB PO SCH (08:49)
[2025-04-08] MEDS: LISINOPRIL 2.5 MG TAB PO SCH (08:50)
[2025-04-08] MEDS: SPIRONOLACTONE 12.5MG PER 1/2 TABLET PO SCH (08:51)
[2025-04-08] MEDS: DAPAGLIFLOZIN PROPANEDIOL 10 MG TABLET PO SCH (08:51)
[2025-04-08] MEDS: BENZTROPINE 1 MG TAB PO SCH (09:24)
[2025-04-08 15:35] VITALS: BP 112/64; TEMP 98; O2SAT 98
[2025-04-08] MEDS: LORazepam 1 MG TAB PO PRN (21:34)
[2025-04-08] MEDS: traZODone 50 MG TAB PO PRN (21:34)
[2025-04-09 06:30] VITALS: BP 126/57; TEMP 97.5; O2SAT 98
[2025-04-09 10:14] VITALS: BP 112/72
[2025-04-09 15:24] VITALS: BP 113/59; TEMP 98.8; O2SAT 97
[2025-04-10 10:14] VITALS: BP 118/61
[2025-04-10 18:42] VITALS: BP 121/70; TEMP 97.6; O2SAT 99
[2025-04-10] MEDS: HALOPERIDOL 5 MG TAB PO PRN (20:04)
[2025-04-10] MEDS: BENZTROPINE 1 MG TAB PO PRN (20:21)
[2025-04-10] MEDS: OLANZapine 5 MG TAB PO PRN (21:34)
[2025-04-11 09:58] VITALS: BP 109/63
[2025-04-11] MEDS ORDERED: NICOTINE POLACRILEX 2 MG GUM PO PRN (12:10)
[2025-04-11] MEDS: lamoTRIgine 25 MG TAB PO SCH (13:09)
[2025-04-11 15:14] VITALS: BP 132/80; TEMP 97.7; O2SAT 100
[2025-04-12] MEDS: LURASIDONE HCL 40 MG TAB PO SCH (17:55)
[2025-04-13 15:18] VITALS: BP 115/61; TEMP 98.2; O2SAT 99
[2025-04-14 15:35] VITALS: BP 116/68; TEMP 97.6; O2SAT 98
[2025-04-16 08:07] VITALS: BP 127/78
[2025-04-17 08:44] VITALS: BP 128/78
[2025-04-17 15:07] VITALS: BP 109/63; TEMP 97.9; O2SAT 100
[2025-04-17] MEDS: BENZTROPINE 1 MG TAB PO PRN (16:17)
[2025-04-17] MEDS: LURASIDONE HCL 20 MG TAB PO SCH (18:12)
[2025-04-18 08:01] VITALS: BP 127/79
[2025-04-18 15:37] VITALS: BP 128/68; TEMP 98.1; O2SAT 98
[2025-04-19 06:38] VITALS: BP 116/59; TEMP 97.6; O2SAT 98
[2025-04-19 08:38] VITALS: BP 134/67
[2025-04-19] MEDS ORDERED: HYDR50TA70 PO (09:58)
[2025-04-19] MEDS ORDERED: LATU20TA PO (09:58)
[2025-04-19] MEDS ORDERED: BENZ1TAB5 PO (09:58)
[2025-04-20] MEDS ORDERED: FARX1TAB3 PO (22:13)
[2025-04-20] MEDS ORDERED: LURA60TA PO (22:13)
[2025-04-20] MEDS ORDERED: MED REC COMMENT (22:29)
== END 2025-04-19 11:13 | disposition home or self-care (01) | DRG 885 ==
LOC: M ED → M ED INP 15:12 → M PSY 22:15
PROVIDERS: ADMIT Internal Medicine; ATTEND Internal Medicine
DX: F31.64 Bipolar disorder, current episode mixed, severe, with psychotic features (principal); F14.20 Cocaine dependence, uncomplicated; F41.1 Generalized anxiety disorder; F41.0 Panic disorder [episodic paroxysmal anxiety]; F12.10 Cannabis abuse, uncomplicated; F60.89 Other specific personality disorders; Z88.5 Allergy status to narcotic agent; Z79.899 Other long term (current) drug therapy; Z78.1 Physical restraint status; R45.850 Homicidal ideations

== ENCOUNTER 2025-04-20 16:33 | Inpatient (IN) | payer MEDICARE, MEDICAID ==
[~2025-04-20] VITALS: Ht 157.5 cm; Wt 64.5 kg
[~2025-04-20 16:33] MED LIST changes: +ATOR40TA75 PO; +BENZ1TAB5 PO; +BUSP5TA PO; +HYDR1CAP25 PO; +LATU20TA PO; +LURA20TA PO
[2025-04-20 17:35] LABS: PLATELET COUNT, AUTOMATED 411 10^3/uL (150-450)
[2025-04-20 17:59] LABS: AMPHETAMINES LEVEL URINE NEGATIVE (NEGATIVE); BARBITURATES URINE NEGATIVE (NEGATIVE); BENZODIAZEPINES URINE NEGATIVE (NEGATIVE); METHADONE URINE NEGATIVE (NEGATIVE); OPIATES URINE NEGATIVE (NEGATIVE); PHENCYCLIDINE URINE NEGATIVE (NEGATIVE)
[2025-04-20 18:01] LABS: ETHYL ALCOHOL (ETHANOL) 0.003 % (0.000-0.010)
[2025-04-20 18:02] LABS: CANNABINOIDS URINE POSITIVE (NEGATIVE); COCAINE METABOLITE URINE POSITIVE (NEGATIVE)
[2025-04-20 18:03] LABS: ALT/SGPT 12 U/L (7.0-40); AST/SGOT 17 U/L (<34); CALCIUM LEVEL 9.7 MG/DL (8.5-10.1); CARBON DIOXIDE LEVEL 28 MMOL/L (20-31); CHLORIDE LEVEL 104 MMOL/L (98-107); CREATININE FOR GFR 0.76 MG/DL (0.55-1.30); GLOMERULAR FILTRATION RATE > 90.0 (>58); HCG, SERUM QUANTITATIVE < 2.6 MIU/ML (<4.2); POTASSIUM SERUM 4.2 MMOL/L (3.5-5.1); SALICYLATE LEVEL < 3.0 MG/DL (<30); SODIUM LEVEL 142 MMOL/L (136-145)
[2025-04-20] MEDS: IBUPROFEN 600 MG TAB PO ONE (18:08)
[2025-04-20] MEDS ORDERED: MOM 30 ML SUSPENSION UDC PO PRN (21:55)
[2025-04-20] MEDS ORDERED: traZODone 50 MG TAB PO PRN (21:55)
[2025-04-20] MEDS ORDERED: HALOPERIDOL 5 MG TAB PO PRN (21:55)
[2025-04-20] MEDS ORDERED: MAALOX 30 ML SUSP *UDC PO PRN (21:55)
[2025-04-20] MEDS ORDERED: LURA60TA PO (22:13)
[2025-04-20] MEDS ORDERED: FARX1TAB3 PO (22:13)
[2025-04-20] MEDS ORDERED: MED REC COMMENT (22:29)
[2025-04-20] MEDS ORDERED: HOME MED LIST COMPLETE! XX SCH (22:30)
[2025-04-20] MEDS: ACETAMINOPHEN 325 MG TAB PO PRN (22:31)
[2025-04-20] MEDS: LORazepam 1 MG TAB PO PRN (22:44)
[2025-04-21 06:18] VITALS: BP 103/62; TEMP 98; O2SAT 97
[2025-04-21] MEDS: LISINOPRIL 2.5 MG TAB PO SCH (09:00)
[2025-04-21] MEDS: DIVALPROEX 500 MG *ER* TAB PO SCH (09:00)
[2025-04-21] MEDS: SPIRONOLACTONE 12.5MG PER 1/2 TABLET PO SCH (09:00)
[2025-04-21] MEDS ORDERED: SPIRONOLACTONE 25 MG TAB PO SCH (09:00)
[2025-04-21] MEDS: DAPAGLIFLOZIN PROPANEDIOL 10 MG TABLET PO SCH (09:00)
[2025-04-21] MEDS: CLOPIDOGREL 75 MG TAB PO SCH (09:47)
[2025-04-21] MEDS: METOPROLOL TART 25 MG TABLET PO SCH (09:47)
[2025-04-21] MEDS: APIXABAN 5 MG TAB PO SCH (09:47)
[2025-04-21] MEDS: HALOPERIDOL LACTATE 5 MG/ML VIAL IM STA (10:29)
[2025-04-21] MEDS: diphenhydrAMINE 50 MG/ML VIAL IM STA (10:29)
[2025-04-21] MEDS: ESCITALOPRAM OXALATE 10 MG TABLET PO SCH (12:04)
[2025-04-21] MEDS ORDERED: IBUPROFEN 600 MG TAB PO PRN (14:35)
[2025-04-21] MEDS: LURASIDONE HCL 20 MG TAB PO SCH (17:54)
[2025-04-21 20:33] VITALS: BP 107/60; TEMP 98; O2SAT 97
[2025-04-21] MEDS: BENZTROPINE 1 MG TAB PO SCH (21:00)
[2025-04-21] MEDS ORDERED: CARBAMAZEPINE 100 MG PO SCH (21:00)
[2025-04-21] MEDS: busPIRone 5 MG TAB PO SCH (21:00)
[2025-04-21] MEDS: AUGMENTIN 875 MG TAB PO SCH (21:00)
[2025-04-21] MEDS: DOXYCYCLINE HYCLATE 100 MG TABLET PO SCH (21:00)
[2025-04-21] MEDS: ATORVASTATIN 20 MG TAB PO SCH (21:00)
[2025-04-22 09:00] VITALS: BP 116/73
[2025-04-22 09:02] VITALS: BP 116/73
[2025-04-24] MEDS ORDERED: DEPA500T2 PO (11:59)
[2025-04-24] MEDS ORDERED: PROBCAP14 PO (12:47)
[2025-04-24] MEDS ORDERED: DOXY-440 PO (12:47)
[2025-04-25] MEDS ORDERED: DIVA500T9 PO (09:47)
[2025-04-25] MEDS ORDERED: PROBCAP14 PO (09:47)
[2025-04-25] MEDS ORDERED: BENZ1TAB5 PO (09:47)
[2025-04-25] MEDS ORDERED: DOXY100C3 PO (09:47)
[2025-04-25] MEDS ORDERED: HYDR50TA70 PO (09:48)
[2025-05-02] MEDS ORDERED: IBUP-1114 PO (16:35)
[2025-05-02] MEDS ORDERED: LEXA1TAB PO (16:35)
[2025-05-02] MEDS ORDERED: LISI2.5T9 PO (16:35)
[2025-05-02] MEDS ORDERED: HYDR-3363 PO (16:35)
[2025-05-02] MEDS ORDERED: HYDR50TA70 PO (16:35)
[2025-05-02] MEDS ORDERED: ATOR1TAB21 PO (16:35)
[2025-05-02] MEDS ORDERED: BENZ0.5T2 PO (16:35)
[2025-05-02] MEDS ORDERED: LATU40TA2 PO (16:35)
[2025-05-02] MEDS ORDERED: TRAZ-252 PO (16:35)
[2025-05-02] MEDS ORDERED: METO1TAB87 PO (16:35)
[2025-05-02] MEDS ORDERED: DOXY100T PO (16:35)
[2025-05-02] MEDS ORDERED: ELIQ5TAB PO (16:35)
[2025-05-08] MEDS ORDERED: LATU80TA2 PO (11:13)
[2025-05-08] MEDS ORDERED: LEXA1TAB PO (11:16)
[2025-05-08] MEDS ORDERED: LISI2.5T9 PO (11:16)
[2025-05-08] MEDS ORDERED: HYDR50TA70 PO (11:19)
[2025-05-08] MEDS ORDERED: METO1TAB87 PO (11:19)
[2025-05-08] MEDS ORDERED: TRAZ-252 PO (11:19)
== END 2025-04-22 21:30 | disposition other institution (70) | DRG 881 ==
LOC: M ED 16:33 → UNDOADMIN 21:54 → M ED INP 21:54 → M PSY 23:33
PROVIDERS: ADMIT Psychiatry & Neurology Neurology; ATTEND Psychiatry & Neurology Neurology
DX: F32.A Depression, unspecified (principal)

== ENCOUNTER 2025-05-28 04:22 | Emergency (ER) | payer MEDICARE, MEDICAID ==
[~2025-05-28] VITALS: Ht 157.5 cm; Wt 68.2 kg
[~2025-05-28 04:22] MED LIST changes: +BENZ0.5T2 PO; +DIVA500T9 PO; +DOXY-440 PO; +DOXY100C3 PO; +DOXY100T PO; +HYDR-3363 PO; +IBUP-1114 PO; +LATU40TA2 PO; +LATU80TA2 PO; +LURA60TA PO; +MED REC COMMENT; +PROBCAP14 PO
[2025-05-28 05:05] LABS: PLATELET COUNT, AUTOMATED 467 10^3/uL (150-450)
[2025-05-28 05:26] LABS: BARBITURATES URINE NEGATIVE (NEGATIVE); BENZODIAZEPINES URINE NEGATIVE (NEGATIVE); METHADONE URINE NEGATIVE (NEGATIVE); OPIATES URINE NEGATIVE (NEGATIVE); PHENCYCLIDINE URINE NEGATIVE (NEGATIVE)
[2025-05-28 05:28] LABS: ETHYL ALCOHOL (ETHANOL) 0.003 % (0.000-0.010)
[2025-05-28 05:30] LABS: ALT/SGPT 18 U/L (7.0-40); AST/SGOT 19 U/L (<34); CALCIUM LEVEL 9.1 MG/DL (8.5-10.1); CARBON DIOXIDE LEVEL 26 MMOL/L (20-31); CHLORIDE LEVEL 105 MMOL/L (98-107); CREATININE FOR GFR 0.91 MG/DL (0.55-1.30); GLOMERULAR FILTRATION RATE 79.8 (>58); POTASSIUM SERUM 4.6 MMOL/L (3.5-5.1); SALICYLATE LEVEL < 3.0 MG/DL (<30); SODIUM LEVEL 139 MMOL/L (136-145)
[2025-05-28 05:32] LABS: AMPHETAMINES LEVEL URINE POSITIVE (NEGATIVE); CANNABINOIDS URINE POSITIVE (NEGATIVE); COCAINE METABOLITE URINE POSITIVE (NEGATIVE)
[2025-05-28] MEDS ORDERED: LATU80TA2 PO (12:55)
[2025-05-28] MEDS ORDERED: IBUP-1114 PO (12:55)
[2025-05-28] MEDS ORDERED: BENZ0.5T2 PO (12:55)
[2025-05-28] MEDS ORDERED: TRAZ-186 PO (12:55)
[2025-05-28] MEDS ORDERED: HOME MED LIST COMPLETE! XX SCH (13:00)
[2025-05-28 14:45] VITALS: BP 146/76; TEMP 97.6; O2SAT 100
== END 2025-05-28 15:29 | disposition home or self-care (01) ==
LOC: M ED 04:22
DX: F19.14 Other psychoactive substance abuse with psychoactive substance-induced mood disorder (principal); R56.9 Unspecified convulsions; I25.2 Old myocardial infarction; I42.9 Cardiomyopathy, unspecified; Z88.5 Allergy status to narcotic agent; Z79.01 Long term (current) use of anticoagulants; Z79.899 Other long term (current) drug therapy; F17.200 Nicotine dependence, unspecified, uncomplicated

== ENCOUNTER 2025-05-31 09:40 | Emergency (ER) | payer MEDICARE, MEDICAID ==
[~2025-05-31] VITALS: Ht 157.5 cm; Wt 69.1 kg
[~2025-05-31 09:40] MED LIST changes: +TRAZ-186 PO
[2025-05-31 09:42] VITALS: TEMP 96.6
[2025-05-31] MEDS ORDERED: ISOVUE-370 76% 100 ML VIAL As Ordered ONE (11:13)
[2025-05-31] MEDS: NS 500 ML IV ONE (11:13)
[2025-05-31] MEDS: ACETAMINOPHEN 500 MG TAB PO ONE (11:13)
[2025-05-31 11:59] LABS: BASO # 0.1 10^3/uL (0.0-0.2); BASO % 0.9 % (0.0-1.0); EOS # 0.1 10^3/uL (0.0-0.5); EOS % 1.1 % (0.0-3.0); LYMPH # 1.3 10^3/uL (1.5-5.0); LYMPH % 17.9 % (24.0-44.0); MONO # 0.4 10^3/uL (0.0-0.8); MONO % 5.8 % (2.0-8.0); NEUTROPHILS # 5.5 10^3/uL (1.5-8.5); NEUTROPHILS % 74.2 % (36.0-66.0); PLATELET COUNT, AUTOMATED 480 10^3/uL (150-450)
[2025-05-31 12:20] LABS: INR 0.91
[2025-05-31 12:22] LABS: ALT/SGPT 10 U/L (7.0-40); AST/SGOT 17 U/L (<34); CALCIUM LEVEL 9.1 MG/DL (8.5-10.1); CARBON DIOXIDE LEVEL 28 MMOL/L (20-31); CHLORIDE LEVEL 103 MMOL/L (98-107); CREATININE FOR GFR 0.74 MG/DL (0.55-1.30); GLOMERULAR FILTRATION RATE > 90.0 (>58); POTASSIUM SERUM 4.1 MMOL/L (3.5-5.1); SODIUM LEVEL 139 MMOL/L (136-145)
[2025-05-31 12:27] LABS: URINE PREG TEST NEGATIVE (NEGATIVE)
[2025-05-31 12:31] LABS: KETONE, URINE AUTO RFX NEGATIVE (NEGATIVE); LEUKOCYTE ESTERASE UR AUTO RFX 2+ (NEGATIVE); MUCUS, URINE RFX SMALL (NEGATIVE); NITRITE, URINE AUTO RFX NEGATIVE (NEGATIVE); RBC, URINE AUTO RFX 5 /HPF (0-3); SQUAM EPITHELIAL CELL UR AURFX 2 /HPF (0-6); WBC, URINE AUTO RFX 4 /HPF (0-3)
[2025-05-31] MEDS: NITROFURANTOIN 100 MG CAP PO ONE (14:25)
[2025-05-31] MEDS ORDERED: NITR100C3 PO (14:26)
[2025-05-31] MEDS ORDERED: PHEN-372 PO (14:26)
[2025-05-31 14:30] VITALS: BP 116/79
[2025-05-31 14:50] VITALS: O2SAT 94
[2025-05-31] MEDS: PHENAZOPYRIDINE 100 MG TAB PO ONE (15:23)
== END 2025-05-31 15:38 | disposition home or self-care (01) ==
LOC: M ED 09:40 → EDBD 09:40 → M ED 15:38
DX: N39.0 Urinary tract infection, site not specified (principal); Z48.00 Encounter for change or removal of nonsurgical wound dressing; F19.10 Other psychoactive substance abuse, uncomplicated; I45.10 Unspecified right bundle-branch block; K76.0 Fatty (change of) liver, not elsewhere classified; G40.909 Epilepsy, unspecified, not intractable, without status epilepticus; I25.2 Old myocardial infarction; F41.9 Anxiety disorder, unspecified; F32.A Depression, unspecified; Z86.79 Personal history of other diseases of the circulatory system; Z88.5 Allergy status to narcotic agent; Z79.01 Long term (current) use of anticoagulants; Z79.899 Other long term (current) drug therapy; Z79.02 Long term (current) use of antithrombotics/antiplatelets; Z86.711 Personal history of pulmonary embolism
CPT/HCPCS: 36415; 71045; 74177; 80047; 80048; 80076; 81001; 83605; 83690; 84703; 85025; 85610; 85730; 87086; 93005; 99284; Q9967

== ENCOUNTER 2025-06-16 22:02 | Inpatient (IN) | payer MEDICARE, MEDICAID ==
[~2025-06-16] VITALS: Ht 157.5 cm; Wt 69.1 kg
[~2025-06-16 22:02] MED LIST changes: +NITR100C3 PO; +PHEN-372 PO
[2025-06-16 22:41] LABS: PLATELET COUNT, AUTOMATED 479 10^3/uL (150-450)
[2025-06-16 23:03] LABS: ETHYL ALCOHOL (ETHANOL) 0.005 % (0.000-0.010)
[2025-06-16 23:05] LABS: ALT/SGPT < 9 U/L (7.0-40); AST/SGOT 14 U/L (<34); CALCIUM LEVEL 9.3 MG/DL (8.5-10.1); CARBON DIOXIDE LEVEL 25 MMOL/L (20-31); CHLORIDE LEVEL 105 MMOL/L (98-107); CREATININE FOR GFR 0.86 MG/DL (0.55-1.30); GLOMERULAR FILTRATION RATE 85.4 (>58); POTASSIUM SERUM 3.9 MMOL/L (3.5-5.1); SALICYLATE LEVEL < 3.0 MG/DL (<30); SODIUM LEVEL 137 MMOL/L (136-145)
[2025-06-16 23:13] LABS: AMPHETAMINES LEVEL URINE NEGATIVE (NEGATIVE); BARBITURATES URINE NEGATIVE (NEGATIVE); BENZODIAZEPINES URINE NEGATIVE (NEGATIVE); METHADONE URINE NEGATIVE (NEGATIVE); OPIATES URINE NEGATIVE (NEGATIVE)
[2025-06-16 23:14] LABS: PHENCYCLIDINE URINE NEGATIVE (NEGATIVE)
[2025-06-16 23:20] LABS: CANNABINOIDS URINE POSITIVE (NEGATIVE); COCAINE METABOLITE URINE POSITIVE (NEGATIVE)
[2025-06-17] MEDS ORDERED: traZODone 50 MG TAB PO PRN (01:10)
[2025-06-17] MEDS ORDERED: MOM 30 ML SUSPENSION UDC PO PRN (01:10)
[2025-06-17] MEDS ORDERED: ACETAMINOPHEN 325 MG TAB PO PRN (01:10)
[2025-06-17] MEDS ORDERED: MAALOX 30 ML SUSP *UDC PO PRN (01:10)
[2025-06-17] MEDS ORDERED: HOME MED LIST COMPLETE! XX SCH (02:20)
[2025-06-17] MEDS: NICOTINE 21 MG/24 HR 1 EA TRANSDERMAL TD SCH (09:00)
[2025-06-17 10:35] VITALS: BP 122/68
[2025-06-17] MEDS: APIXABAN 5 MG TAB PO SCH (10:43)
[2025-06-17] MEDS: METOPROLOL TART 25 MG TABLET PO SCH (10:43)
[2025-06-17] MEDS: LISINOPRIL 2.5 MG TAB PO SCH (10:43)
[2025-06-17 14:51] VITALS: BP 100/57; TEMP 97.8; O2SAT 98
[2025-06-17] MEDS: ESCITALOPRAM OXALATE 10 MG TABLET PO SCH (15:31)
[2025-06-17] MEDS: LURASIDONE HCL 40 MG TAB PO SCH (18:33)
[2025-06-17] MEDS: IBUPROFEN 400 MG TAB PO PRN (18:36)
[2025-06-17] MEDS: ATORVASTATIN 20 MG TAB PO SCH (21:04)
[2025-06-18] MEDS ORDERED: HYDR1CAP25 PO (09:35)
[2025-06-18 10:14] VITALS: BP 130/75
[2025-06-18 16:12] VITALS: BP 117/67; TEMP 98.2; O2SAT 97
[2025-06-19 08:43] VITALS: BP 126/72
[2025-06-19] MEDS: CYCLOBENZAPRINE 5 MG TABLET PO ONE (10:40)
[2025-06-19] MEDS: DIVALPROEX 125 MG TAB PO SCH (10:42)
[2025-06-19] MEDS: HALOPERIDOL 5 MG TAB PO PRN (17:59)
[2025-06-19 19:06] VITALS: BP 123/73; TEMP 97.5
[2025-06-20 09:04] VITALS: BP 128/71
[2025-06-20 15:21] VITALS: BP 120/59; TEMP 97; O2SAT 98
[2025-06-20] MEDS: CYCLOBENZAPRINE 5 MG TABLET PO PRN (18:56)
[2025-06-21 09:01] VITALS: BP 115/77
[2025-06-21] MEDS ORDERED: DIVALPROEX 125 MG TAB PO SCH (21:00)
== END 2025-06-21 12:52 | disposition home or self-care (01) | DRG 885 ==
LOC: M ED 22:02 → M ED INP 06-17 01:06 → M PSY 06-17 02:16
PROVIDERS: ADMIT Student in an Organized Health Care Education/Training Program; ATTEND Student in an Organized Health Care Education/Training Program
DX: F31.30 Bipolar disorder, current episode depressed, mild or moderate severity, unspecified (principal); R45.851 Suicidal ideations; I50.32 Chronic diastolic (congestive) heart failure; Z59.01 Sheltered homelessness; I25.10 Atherosclerotic heart disease of native coronary artery without angina pectoris; G40.909 Epilepsy, unspecified, not intractable, without status epilepticus; F17.200 Nicotine dependence, unspecified, uncomplicated; Z86.73 Personal history of transient ischemic attack (TIA), and cerebral infarction without residual deficits; I25.2 Old myocardial infarction; F41.9 Anxiety disorder, unspecified; R45.850 Homicidal ideations; Z79.01 Long term (current) use of anticoagulants; Z86.718 Personal history of other venous thrombosis and embolism; Z79.899 Other long term (current) drug therapy; Z88.5 Allergy status to narcotic agent; Z88.8 Allergy status to other drugs, medicaments and biological substances